=== PATIENT | female | born 1980 | race Caucasian/White ===

== ENCOUNTER 2017-01-29 22:32 | Inpatient (IN) | payer MEDICAID ==
[~2017-01-29] VITALS: Ht 157.5 cm; Wt 61.3 kg
[2017-01-29 22:34] VITALS: BP 131/80; PULSE 88; RESP 18; TEMP 98.6; O2SAT 98
--- NOTE | 2017-01-29 22:45 | PD ---
Physical Exam Date Seen by Provider: Jan 29, 2017 Time Seen by Provider: 22:40 Narrative 36 YOHF C/O ABSCESS ON CHEST 6 DAYS. SOBER 100 DAYS. HAD SURGERY IN OR. NO F/C/ . +N/V SON ALSO SICK. PAIN 01/22. STAGE 4 SACRAL ULCER VS REVIEWED WAITING FOR BED PLACEMENT Data Data Last Documented VS Vital Signs Date Time Temp Pulse Resp B/P Pulse Ox O2 Delivery O2 Flow Rate FiO2 01/29/17 22:34 98.6 88 18 131/80 98 Room Air MDM Supervised Visit with MELBA: Ji Fairchild Jan 29, 2017 22:45
[2017-01-29] MEDS ORDERED: OXYC30TA PO (23:25)
[2017-01-29] MEDS ORDERED: IPRASOL INH (23:25)
[2017-01-29] MEDS ORDERED: IBUP800T23 PO (23:25)
[2017-01-29] MEDS ORDERED: SUBO8MIS SL (23:25)
[2017-01-29] MEDS ORDERED: HYDR50TA94 PO (23:25)
[2017-01-29] MEDS ORDERED: NEPHTAB3 PO (23:25)
[2017-01-29] MEDS ORDERED: METO25TA3 PO (23:25)
[2017-01-29] MEDS ORDERED: ASPI325T PO (23:25)
[2017-01-29] MEDS ORDERED: MAGN400T2 PO (23:25)
--- NOTE | 2017-01-29 23:29 | PD ---
HPI Chief Complaint: Skin Problem Time Seen by Provider: 23:29 Travel History International Travel<30 days: No Contact w/Intl Traveler<30days: No Traveled to known affect area: No History of Present Illness HPI 36-year-old female came to the emergency room with her mother with history of draining abscess on her postsurgical sternal wound. Patient says that she noticed the swelling and the abscess about 3 days ago. She went to see the doctor at the urgent care and was basically told that they wouldn't be able to take care of it and she should come to the emergency room. But patient waited and it "popped" on its own and copious amount of purulent material drained yesterday. It has continued to drain and patient today decided to come to the ER. No history of fever or chills. 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 This happened at [facility] in [place]. Patient was admitted for 6 weeks. During that time she was in, and was septic, renal failure, multiorgan failure. She was released about 5 weeks ago. She has come here to live with her mother who is taking care of her. She hasn't seen a primary care here. But she has an appointment next week with someone. Vital signs were stable in the emergency room. [facility] Past Medical History Narrative Medical List of her past medical, surgical, social and family history is reviewed from the nursing note. Hx Anticoagulant Therapy: Yes (Aspirin) Asthma: Yes Cardiovascular Problems: Yes (Endocarditis) Diminished Hearing: No Gastrointestinal Disorders: Yes (IBS) GERD: Yes Respiratory: Yes (Asthma) Tetanus Vaccination: < 5 Years Influenza Vaccination: No ?: Not LMP: 03/2013 Past Surgical History Cholecystectomy: Yes Valve Replacement: Yes (TRICUSPID VALVE/OPEN HEART SURGERY 11/2016) Social History Alcohol Use: No Tobacco Use: Yes Substance Use: No (FORMER) Allergies-Medications (Allergen,Severity, Reaction): Coded Allergies: Penicillins (Verified Allergy, Severe, 01/29/17) Sulfa (Sulfonamide Antibiotics) (Verified Allergy, Severe, 01/29/17) amoxicillin (Verified Allergy, Severe, 01/29/17) iodine (Verified Allergy, Severe, 01/29/17) Uncoded Allergies: seafood (Allergy, Severe, 01/29/17) Comments List of her allergies reviewed from the nursing note. Reported Meds & Prescriptions Reported Meds & Active Scripts Active Reported Duoneb (Ipratropium-Albuterol Neb) 0.5-2.5 Mg/3 Ml Neb 1 Nebule INH Q8HR NEB Oxycodone (Oxycodone HCl) 30 Mg Tab 30 Mg PO BID Suboxone Sublingual Film (Buprenorphine-Naloxone Sublingual Film) 8-2 Mg Film 1 Film SL TID Unique ID number required: Nephro-Laura (B-Complex W/ C & Folic Acid) 1 Tab 1 Tab PO DAILY Ibuprofen 800 Mg Tab 800 Mg PO BID Aspirin 325 Mg Tab 325 Mg PO DAILY Magnesium Oxide 400 Mg Tab 400 Mg PO DAILY Hydroxyzine HCl 50 Mg Tab 50 Mg PO QID PRN Metoprolol Tartrate 25 Mg Tab 25 Mg PO BID Narrative Medication List of her home medications reviewed from the nursing note. Review of Systems Except as stated in HPI: all other systems reviewed are Neg Physical Exam Narrative GENERAL: The, alert, moderate distress. SKIN: Focused skin assessment warm/dry. Stage IV decubitus ulcer on the sacrum. The postsurgical sternal wound superiorly has a 2 cm x 3 cm abscess that is open and draining on the inferior aspect. Purulent material is draining out. It is tender to touch. HEAD: Atraumatic. Normocephalic. EYES: Pupils equal and round. No scleral icterus. No injection or drainage. ENT: No nasal bleeding or discharge. Mucous membranes pink and moist. NECK: Trachea midline. No JVD. CARDIOVASCULAR: Regular rate and rhythm. No murmur appreciated. RESPIRATORY: No accessory muscle use. Clear to auscultation. Breath sounds equal bilaterally. GASTROINTESTINAL: Abdomen soft, non-tender, nondistended. Hepatic and splenic margins not palpable. MUSCULOSKELETAL: No obvious deformities. No clubbing. No cyanosis. No edema. NEUROLOGICAL: Awake and alert. No obvious cranial nerve deficits. Motor grossly within normal limits. Normal speech. PSYCHIATRIC: Appropriate mood and affect; insight and judgment normal. Data Data Last Documented VS Orders Orders Basic Metabolic Panel (Bmp) (01/29/17 23:34) Complete Blood Count With Diff (01/29/17 23:34) Blood Culture (01/29/17 23:34) Wound Culture And Gram Stain (01/29/17 23:34) C-Reactive Protein (Crp) (01/29/17 23:34) Westergren Sedimentation Rate (01/29/17 23:34) Vancomycin Inj (Vancomycin Inj) (01/29/17 23:45) Sodium Chlor 0.9% 1000 Ml Inj (Ns 1000 M (01/30/17 01:00) Admit Order (Ed Use Only) (01/30/17 01:27) Labs Laboratory Tests Test 01/30/17 00:10 White Blood Count 10.6 TH/MM3 Red Blood Count 3.66 MIL/MM3 Hemoglobin 9.8 GM/DL Hematocrit 30.0 % Mean Corpuscular Volume 82.1 FL Mean Corpuscular Hemoglobin 26.9 PG Mean Corpuscular Hemoglobin Concent 32.7 % Red Cell Distribution Width 16.5 % Platelet Count 455 TH/MM3 Mean Platelet Volume 5.6 FL Neutrophils (%) (Auto) 68.1 % Lymphocytes (%) (Auto) 20.7 % Monocytes (%) (Auto) 5.7 % Eosinophils (%) (Auto) 4.6 % Basophils (%) (Auto) 0.9 % Neutrophils # (Auto) 7.2 TH/MM3 Lymphocytes # (Auto) 2.2 TH/MM3 Monocytes # (Auto) 0.6 TH/MM3 Eosinophils # (Auto) 0.5 TH/MM3 Basophils # (Auto) 0.1 TH/MM3 CBC Comment DIFF FINAL Differential Comment Erythrocyte Sedimentation Rate 104 mm/hr Blood Urea Nitrogen 45 MG/DL Creatinine 2.76 MG/DL Random Glucose 113 MG/DL Calcium Level 11.5 MG/DL Sodium Level 135 MEQ/L Potassium Level 4.6 MEQ/L Chloride Level 100 MEQ/L Carbon Dioxide Level 26.4 MEQ/L Anion Gap 9 MEQ/L Estimat Glomerular Filtration Rate 20 ML/MIN Iron Level 35 MCG/DL Total Iron Binding Capacity 335 MCG/DL Percent Iron Saturation 10.5 % Transferrin 239 MG/DL Ferritin 568 NG/ML C-Reactive Protein 2.25 MG/DL Vitamin B12 Level 582 PG/ML Folate GREATER THAN 20.0 NG/ML MDM Medical Decision Making Medical Screen Exam Complete: Yes Emergency Medical Condition: Yes Medical Record Reviewed: Yes Differential Diagnosis Abscess, postsurgical infection, osteomyelitis, sepsis Narrative Course 2 AM blood test results came back and patient shows significant renal insufficiency. However there is no old labs to compare her previous renal function with. Her last blood test result is from [facility] in [place] and patient doesn't remember her renal function. She was given IV vancomycin. I expressed to her my concern about this infection going into the sternum especially since there is hardware with the sternal wires from recent surgery. Especially with a history of MRSA infection. She has had a long protracted course of illness that was extremely complicated and she was in a significantly critical condition at that time. It would be orosco to admit her and have her receive few more doses of IV antibiotics until the wound culture comes back. Also the admitting team will need to contact [facility] to get her last set of blood test results to compare the renal function. Patient and her mother understood this and agreed with the admission. 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
[2017-01-29] MEDS ORDERED: VANCOMYCIN INJ 1,000 MG in SODIUM CHLOR 0.9% 250 ML INJ 250 ML IV ONE (23:45)
[2017-01-30 00:37] LABS: AUTOMATED NEUTROPHIL # 7.2 TH/MM3 (1.8-7.7); BASOPHIL # 0.1 TH/MM3 (0-0.2); BASOPHIL % 0.9 % (0.0-2.0); EOSINOPHIL # 0.5 TH/MM3 (0-0.4); EOSINOPHIL % 4.6 % (0.0-4.0); HEMO FLAGS DIFF FINAL; LYMPH % 20.7 % (9.0-44.0); LYMPHOCYTE # 2.2 TH/MM3 (1.0-4.8); MEAN CELL VOLUME 82.1 FL (80.0-100.0); MEAN CORPUSCULAR HEMOGLOBIN 26.9 PG (27.0-34.0); MEAN CORPUSCULAR HGB CONC 32.7 % (32.0-36.0); MONO % 5.7 % (0.0-8.0); NEUT % 68.1 % (16.0-70.0); PLATELET COUNT 455 TH/MM3 (150-450); RED BLOOD COUNT 3.66 MIL/MM3 (4.00-5.30); RED CELL DISTRIBUTION WIDTH 16.5 % (11.6-17.2); WHITE BLOOD COUNT 10.6 TH/MM3 (4.0-11.0)
[2017-01-30 00:46] LABS: BICARBONATE 26.4 MEQ/L (21.0-32.0); POTASSIUM 4.6 MEQ/L (3.5-5.1)
[2017-01-30] MEDS ORDERED: SODIUM CHLOR 0.9% 1000 ML INJ 1,000 ML IV ONE (01:00)
[2017-01-30] MEDS ORDERED: LACTULOSE SYRUP 20 GM/30 ML CUP PO PRN (01:30)
[2017-01-30] MEDS ORDERED: ACETAMINOPHEN 325 MG TAB PO PRN (01:30)
[2017-01-30] MEDS ORDERED: SENNOSIDES 8.6 MG TAB PO PRN (01:30)
[2017-01-30] MEDS ORDERED: NALOXONE HCL 0.4 MG/ML AMP IV PRN (01:30)
[2017-01-30] MEDS ORDERED: BISACODYL 10 MG SUPP RECTAL PRN (01:30)
[2017-01-30] MEDS ORDERED: MAGNESIUM HYDROXIDE SUSP 30 ML CUP PO PRN (01:30)
[2017-01-30] MEDS ORDERED: Vancomycin Consult Pharmacy 1 EA OTHER SCH (01:30)
[2017-01-30] MEDS ORDERED: ONDANSETRON HCL 4 MG/2 ML VIAL IVP PRN (01:30)
[2017-01-30] MEDS ORDERED: SODIUM CHLORIDE 0.9% FLUSH 10 ML FLUSH IV FLUSH PRN (01:30)
[2017-01-30] MEDS ORDERED: RESP: ALBUTEROL 2.5 MG/IPRATROPIUM 0.5 MG NEB (PRN) NEB (01:45)
[2017-01-30] MEDS: SODIUM CHLOR 0.9% 1000 ML INJ 1,000 ML IV SCH ×3 (01:56→21:42)
[2017-01-30 02:33] VITALS: BP 126/72; TEMP 98.5
[2017-01-30 04:49] VITALS: BP 100/57; PULSE 89; RESP 17; TEMP 97.9; O2SAT 98
[2017-01-30 08:05] VITALS: BP 96/89; PULSE 86; RESP 18; TEMP 98.2; O2SAT 96
--- NOTE | 2017-01-30 10:50 | MH ---
cc: ACOSTA OLIVER MD DATE OF ADMISSION 01/30/2017 CHIEF COMPLAINT Sternal wound infection after tricuspid valve replacement. HISTORY OF PRESENT ILLNESS This is a 36-year female with a history of IV drug abuse, heroin, in the past who has an infected endocarditis with a tricuspid valve problem for which she had a surgery done in [place]. She has a history of IBS, GERD, asthma. She had a tricuspid valve replacement in November 18, 2016. She is saying that she has a pussy discharge from the postsurgical sternal wound. She said that she noted the swelling and the discharged three days ago. She went to see the doctor at the Urgent Care and was basically told that they would not be able to take care of it and she needs to go to the emergency room. The patient had a copious purulent material drained yesterday and it discontinued to drain today. She no history of fever or chills. So this surgery happened at [facility] in [place]. She remained admitted for six weeks and on septic. She had renal failure and multi-organ failure. She was released from the hospital five weeks ago. She came to [place] to live with her mother who was taking care of her. She does not have any primary care doctor. Other than that, nothing significant. PAST MEDICAL AND SURGICAL HISTORY As dictated above. SOCIAL HISTORY Denies drinking. Smokes on a daily basis. Abuse drugs, IV but denies now. Lives at home with mother. Unemployed. FAMILY HISTORY Nothing significant. ALLERGIES PENICILLIN, SULFA, AMOXICILLIN AND IODINE. MEDICATIONS Include: 1. DuoNeb nebulization q.8 h. 2. Suboxone sublingual three times a day 3. Nephrovite 4. B-complex daily 5. Ibuprofen 800 mg twice a day 6. Aspirin 325 mg p.o. daily 7. Magnesium oxide 400 mg daily 8. Hydroxyzine 50 mg daily 9. Metoprolol 25 mg twice a day REVIEW OF SYSTEMS Positive for a pussy discharge from the sternal wound, feeling weak and tired. All other review of systems are negative. PHYSICAL EXAM This is a 36-year female sitting on the bed not in acute distress. VITAL SIGNS: Temperature 98.2, heart rate 86, respirations 18, blood pressure 96/89, O2 saturation 96% room air. HEENT: Normocephalic, atraumatic. EOMI. PERRL. Oral mucosa moist. NECK: Supple. No visible thyromegaly or neck mass. Trachea central. CARDIOVASCULAR: Regular rate and rhythm. Respirations are clear to auscultation bilaterally. CHEST: Shows a sternal wound infection with discharge. ABDOMEN: Soft and nontender. Bowel sounds audible. EXTREMITIES: No cyanosis or clubbing. Full range of motion of all extremities. No pitting edema. NEUROLOGIC: Awake, alert, and oriented x4. No focal deficits. SKIN: Shows wound at the sternal area with a pussy discharge. PSYCH: The patient is cooperative. Mood and affect are normal. LABORATORY DATA Include CBC showed a WBC count of 10.6 normal. Hemoglobin 9.8 low, hematocrit 30.0 low, platelet count 455 high. BMP totally unremarkable except for a sodium of 135 low, BUN 45 high, creatinine 2.76 high, GFR 20 low, glucose 113 high, calcium 11.5 high, C-reactive protein 2.25. Blood cultures x2 done negative so far. Wound culture done, report is still pending. ASSESSMENT/PLAN This is a 36-year female who came to the ER diagnosed with: 1. 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 Infectious disease and wound care consulted. The patient received vancomycin. Further recommendation per infectious disease and wound care. 2. History of IV drug abuse. 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 Advised to discontinue IV drug abuse. The patient verbalized understanding. 3. Renal failure. We will monitor BUN and creatinine. 4. Anemia. We will check iron study, B12, folic acid level. 5. DVT prophylaxis. Lovenox 30 mg subcutaneous daily. 6. GI prophylaxis 7. Protonix 40 mg p.o. daily We are going to manage the patient on a daily basis and make recommendations on a daily basis. Acosta Oliver MD EA/MARK /10:08 AM /10:26 AM
[2017-01-30] MEDS: METOPROLOL TARTRATE 25 MG TAB PO SCH ×2 (11:28→21:41)
[2017-01-30] MEDS: SODIUM CHLORIDE 0.9% FLUSH 10 ML FLUSH IV FLUSH SCH ×2 (11:28→21:00)
[2017-01-30] MEDS: DOCUSATE SODIUM 50 MG/SENNA 8.6 MG TAB PO SCH ×2 (11:28→21:00)
[2017-01-30] MEDS: FOLIC ACID 1 MG TAB PO SCH (11:28)
[2017-01-30] MEDS ORDERED: LEVOFLOXACIN 250 MG PREMIX INJ 50 ML IV SCH (12:00)
[2017-01-30 12:06] VITALS: BP 100/60; PULSE 50; RESP 20; TEMP 96.8; O2SAT 96
[2017-01-30 13:51] LABS: FERRITIN 568 NG/ML (8-252); TRANSFERRIN 239 MG/DL (213-418); TRANSFERRIN IRON PROFILE 239 MG/DL (200-360)
[2017-01-30] MEDS: oxyCODONE HCL 10 MG CONTROLLED RELEASE TAB PO SCH (14:12)
[2017-01-30] MEDS: ENOXAPARIN SODIUM 30 MG/0.3 ML SYRINGE SQ SCH ×2 (14:14→14:19)
[2017-01-30] MEDS: VITAMIN B COMPLEX/VIT C TAB PO SCH (14:14)
--- NOTE | 2017-01-30 14:43 | PD.CONS ---
[facility] Service Nephrology Consult Requested By Dr. Neil Reason for Consult Acute Renal Failure Primary Care Physician Taye Griffiths M.D. History of Present Illness This is a 36 y/o female patient who came to hospital for evaluation of chest wound. She was admitted to a hospital in [place], [place], where she was admitted for sepsis and TV endocarditis due to IV heroin use. She had complicated hospitalization with multi organ failure. She had a trach and was on the vent for several weeks; she reports a 6 week hospital admission. In addition she had renal failure likely due to ATN, did require multiple dialysis sessions, at one time it was being performed daily. She is not aware of her creatinine at discharge. On arrival here her creatinine was 2.76, with no baseline labs for comparison. We were consulted for management, and she is a full code. Of note she has been taking Motrin 800 mg twice daily since her discharge, and reports her urine has been dark recently. She is also anemic with hemoglobin 9.8. ( An Dotson) Review of Systems Constitutional: COMPLAINS OF: Fatigue, Fever, Change in appetite (An Dotson) Past Family Social History Allergies: Coded Allergies: Penicillins (Verified Allergy, Severe, 01/29/17) Sulfa (Sulfonamide Antibiotics) (Verified Allergy, Severe, 01/29/17) amoxicillin (Verified Allergy, Severe, 01/29/17) iodine (Verified Allergy, Severe, 01/29/17) Uncoded Allergies: seafood (Allergy, Severe, 01/29/17) Past Medical History IBS GERD asthma Hx IVDA, with TV endocarditis; complicated hospitalization, multiorgan failure; was on ventilator for extended time -was on HD for unknown time (she reports daily HD) Past Surgical History Tricuspid valve replacement tracheostomy with reversal PermCath with removal prior vulvectomy tubal GB removal Reported Medications Duoneb (Ipratropium-Albuterol Neb) 0.5-2.5 Mg/3 Ml Neb 1 Nebule INH Q8HR NEB Oxycodone (Oxycodone HCl) 30 Mg Tab 30 Mg PO BID Suboxone Sublingual Film (Buprenorphine-Naloxone Sublingual Film) 8-2 Mg Film 1 Film SL TID Unique ID number required: Nephro-Laura (B-Complex W/ C & Folic Acid) 1 Tab 1 Tab PO DAILY Ibuprofen 800 Mg Tab 800 Mg PO BID Aspirin 325 Mg Tab 325 Mg PO DAILY Magnesium Oxide 400 Mg Tab 400 Mg PO DAILY Hydroxyzine HCl 50 Mg Tab 50 Mg PO QID PRN Metoprolol Tartrate 25 Mg Tab 25 Mg PO BID Active Ordered Medications Current Medications Medications (Trade) Dose Ordered Sig/Tom Route Start Time Stop Time Status Last Admin (NS 1000 ml Inj) 1,000 ml @ 100 mls/hr Q10H IV 01/30/17 01:27 01/30/17 01:56 (NS Flush) 2 ml UNSCH PRN IV FLUSH 01/30/17 01:30 (NS Flush) 2 ml BID IV FLUSH 01/30/17 09:00 01/30/17 11:28 (Tylenol) 650 mg Q4H PRN PO 01/30/17 01:30 (Zofran Inj) 4 mg Q6H PRN IVP 01/30/17 01:30 (Narcan Inj) 0.4 mg UNSCH PRN IV 01/30/17 01:30 (Viridiana-Colace) 1 tab BID PO 01/30/17 09:00 01/30/17 11:28 (Milk Of Magnesia Liq) 30 ml Q12H PRN PO 01/30/17 01:30 (Senokot) 17.2 mg Q12H PRN PO 01/30/17 01:30 (Dulcolax Supp) 10 mg DAILY PRN RECTAL 01/30/17 01:30 Lactulose 30 ml 30 ml DAILY PRN PO 01/30/17 01:30 (Vancomycin Consult Pharmacy) 0 ml @ 0 mls/hr UNSCH OTHER 01/30/17 01:30 (Atarax) 50 mg QID PRN PO 01/30/17 01:45 (Lopressor) 25 mg BID PO 01/30/17 09:00 01/30/17 11:28 (Allbee C) 1 tab DAILY PO 01/30/17 09:00 01/30/17 14:14 (OxyCONTIN CR) 30 mg BID PO 01/30/17 09:00 01/30/17 14:12 (Folate) 1 mg DAILY PO 01/30/17 09:00 01/30/17 11:28 (Pneumovax-23 Inj) 25 mcg ONCE ONCE IM 01/31/17 09:00 01/31/17 09:[address] DUARTE FOR PHARMA... ONCE ONCE .XX 01/31/17 06:00 01/31/17 06:01 (Levaquin 250 Mg Premix Inj) 50 ml @ 50 mls/hr Q24H IV 01/30/17 12:00 01/30/17 14:11 (Lovenox Inj) 30 mg Q24H SQ 01/30/17 12:00 Family History No hx of renal impairment Social History smokes daily denies ETOH former IV heroin use, sober 100 days approximately lives with mother she is unemployed full code (An Dotson) Physical Exam Vital Signs Vital Signs Date Time Temp Pulse Resp B/P Pulse Ox O2 Delivery O2 Flow Rate FiO2 01/30/17 12:06 96.8 50 20 100/60 96 01/30/17 08:05 98.2 86 18 96/89 96 01/30/17 04:49 97.9 89 17 100/57 98 01/30/17 02:33 98.5 81 16 126/72 98 01/29/17 23:18 16 01/29/17 22:34 98.6 88 18 131/80 98 Room Air Physical Exam Young female patient awake, alert, oriented x 3 S1/S2, RRR, no murmur auscultated Lungs clear in all rivas Abd: soft, non tender Ext: no edema upper chest she has abscess appearing area where her incision was healing, purulent drainage; some bloody drainage Laboratory Laboratory Tests Test 01/30/17 00:10 White Blood Count 10.6 Red Blood Count 3.66 Hemoglobin 9.8 Hematocrit 30.0 Mean Corpuscular Volume 82.1 Mean Corpuscular Hemoglobin 26.9 Mean Corpuscular Hemoglobin 32.7 Concent Red Cell Distribution Width 16.5 Platelet Count 455 Mean Platelet Volume 5.6 Neutrophils (%) (Auto) 68.1 Lymphocytes (%) (Auto) 20.7 Monocytes (%) (Auto) 5.7 Eosinophils (%) (Auto) 4.6 Basophils (%) (Auto) 0.9 Neutrophils # (Auto) 7.2 Lymphocytes # (Auto) 2.2 Monocytes # (Auto) 0.6 Eosinophils # (Auto) 0.5 Basophils # (Auto) 0.1 CBC Comment DIFF FINAL Differential Comment Erythrocyte Sedimentation Rate 104 Sodium Level 135 Potassium Level 4.6 Chloride Level 100 Carbon Dioxide Level 26.4 Anion Gap 9 Blood Urea Nitrogen 45 Creatinine 2.76 Estimat Glomerular Filtration 20 Rate Random Glucose 113 Calcium Level 11.5 Iron Level 35 Total Iron Binding Capacity 335 Percent Iron Saturation 10.5 Transferrin 239 Ferritin 568 C-Reactive Protein 2.25 Vitamin B12 Level 582 Folate GREATER THAN 20.0 Date/Time Procedure Status Source Growth 01/30/17 00:10 Gram Stain - Final Resulted Wound Chest 01/30/17 00:10 Wound Culture Resulted Wound Chest Pending 01/30/17 00:10 Aerobic Blood Culture Received Blood Peripheral Pending 01/30/17 00:10 Anaerobic Blood Culture Received Blood Peripheral Pending (An Dotson) Result Diagram: 01/30/17901/30/179 Assessment and Plan Problem List: (1) Renal insufficiency Plan: There are no prior labs for comparison, her creatinine here is 2.76 urine output unknown it is possible she is still in renal recovery or in [place] due to infection, she is on 0.9% NS, continue Obtain UA and renal US avoid nephrotoxic medications, monitor drug levels when appropriate (2) Postoperative infection Plan: ID and wound care to evaluate cultures have been drawn she is on contact isolation (3) Anemia Plan: hospitalist to manage B12 and folate are not deficient (An Dotson) Assessment and Plan patient was seen and examined. Agree with above assessment and plan. Avoid Ibuprofen. Baseline renal function is not known, was in [place], [place] with endocarditis, cardiac surgery, and renal failure requiring dialysis. (Zoran Mireles MD) Problem Qualifiers (1) Postoperative infection: Qualified Code: T81.4XXA - Postoperative infection, initial encounter An Dotson Jan 30, 2017 14:43 Zoran Mireles MD Jan 30, 2017 21:21
--- NOTE | 2017-01-30 16:25 | PD.WCN.NOT ---
Wound Consult Description: Stage 4 pressure injury to sacral area and assisted DAMASO Bates with dressing change to medial chest open incision line. Communicated with: DAMASO Bates F pod CDU and Doctor Acosta Neil Recommendation: Please cleanse wound to sacral area with normal saline only and pat dry. Apply Santyl ointment cheri thickness to wound bed and cover with slightly moistened Maxorb II (Calcium Alginate) dressing . Secured dressing with dry cover dressing and change daily. Additional Information: Patient seen on F pod CDU for evaluation of coccyx wound management. Patient also has midline chest wound with positive wound culture for rare gram positive cocci in pairs and clusters. Infectious disease is consulted for chest wound.Patient had previous surgery for endocarditis in [place]. Patient states, "I was in ICU and they didn't turn me and I got a wound that was all the way down to the bone back there."RN Jana changed dressing to chest. Wound was noted open to air with 100% red non granulation tissue to wound bed. Wound to chest measures ~5cm x ~1cm x ~0.1 cm. Wound has minimal sero-sanguinous drainage. RN cleansed wound with normal saline before applying Xeroform dressing in single layer just over wound bed and covered with bordered gauze. Patient is standing with out assistance for Coccyx wound assessment. Removed gauze and tape dressing in place to reveal sacral wound. Wound bed presents with ~80% pale red granulation tissue, ~10% yellow thin slough and ~10% white tissue. Periwound is noted with maceration between 5 and 6 o'clock an is other orosco unremarkable. Wound margins are epiboled and unattached from 10 to 4 o' clock. Wound has scant active sero-sanguinous drainage without odor. Cleansed wound with normal saline and applied Maxorb II packed in to wound bed and covered with dry cover dressing.Patient ambulatory and able to reposition self without difficulty in bed.Also sees wound care physician in [place]. Henry," They are using santyl on my wound." Jannette Simons [facility] Jan 30, 2017 16:25
[2017-01-30 16:34] VITALS: BP 105/69; RESP 18; TEMP 96.8; O2SAT 96
[2017-01-30] MEDS: hydrOXYzine HCL 50 MG TAB PO PRN (18:56)
--- NOTE | 2017-01-30 19:37 | MB ---
cc: SAMANTA TRUJILLO MD DATE OF CONSULTATION 01/29/[address] Acosta Neil. REASON FOR CONSULTATION Sternal wound abscess. Recent endocarditis. History of MRSA. HISTORY OF PRESENT ILLNESS This is a 36-year-old white female who presented to the emergency department with a draining wound at the sternum. She is status post tricuspid valve replacement in [place], [place] in November 18, 2016. The patient notes that while she was in the hospital she had kidney failure and had to be dialyzed. She also notes that she had a feeding tube and had been fed via the feeding tube which was in her nose for up to six weeks to two months. The patient does not recall the bacterial infection that caused her sepsis. The patient moved to [place] two weeks ago. Initial presentation revealed white count of 10.6, normal temperature. The patient is noted also to have acute kidney disease at this time. PAST MEDICAL HISTORY 1. Tricuspid valve endocarditis 2. History of IV drug abuse prior to cardiac valve replacement 3. Irritable bowel syndrome, 4. Gastroesophageal reflux disease, 5. Asthma. ALLERGIES PENICILLIN SULFA AMOXICILLIN IODINE MEDICATIONS 1. Vancomycin dose was given earlier. 2. Levaquin 3. Viridiana-Colace. 4. Lopressor. 5. Oxycodone. 6. Folic acid 7. Atarax. 8. DuoNeb. 9. Vitamin D. 10. Vitamin C SOCIAL HISTORY Positive tobacco, history of IV drug abuse. No alcohol. FAMILY HISTORY Noncontributory REVIEW OF SYSTEMS Negative on 10-point review except for mild chest discomfort. PHYSICAL EXAMINATION GENERAL: This is a slender female in no acute distress. She is awake, alert and oriented. VITAL SIGNS: Temperature of 96.8, BP 105/69, respirations 89, rate 86. HEENT: Head atraumatic. Extraocular movements grossly intact, pupils reactive to light without icterus. Oropharynx moist mucosa without lesions. NECK: Supple. No adenopathy. LUNGS: Clear to auscultation. CHEST: Sternal wound with a dressing in place. There is erythema and swelling around the sternal incision. HEART: Regular S1-S2 without audible murmurs. ABDOMEN: Bowel sounds present, soft, no tenderness appreciated. RECTAL: Not performed. EXTREMITIES: No clubbing, cyanosis or edema. SKIN: No rash. NEUROLOGIC: Nonfocal PSYCHIATRIC: The patient calm and cooperative. LABORATORY DATA WBC 10.6, platelets 455, 68% neutrophils, 20% lymphocytes, hemoglobin 9.8. Creatinine 2.76, estimated GFR 20, sodium 135. Wound culture pending. Blood culture pending. A wound Gram stain shows rare gram-positive cocci in pairs and clusters. IMPRESSION 1. Sternal wound infection 2. Status post tricuspid valve replacement via open sternal thoracotomy RECOMMENDATIONS 1. Continue vancomycin but monitor levels to dose based on levels because of the patient's renal function. 2. Discontinue Levaquin 3. Monitor cultures. Thank you for this consultation. The patient's progress will be monitored and antibiotics will be adjusted on followup. Samanta Trujillo MD FD/ /5:41 PM /7:17 PM DENNY
[2017-01-30 20:24] VITALS: BP 119/62; PULSE 75; RESP 16; TEMP 98; O2SAT 100
[2017-01-31] VITALS (8 sets, daily range): BP systolic 98–130; BP diastolic 50–75; PULSE 65–73; RESP 16–18; TEMP 97.9–98.5; O2SAT 96–100
[2017-01-31] MEDS: oxyCODONE HCL 10 MG CONTROLLED RELEASE TAB PO SCH ×3 (01:14→21:46)
[2017-01-31] MEDS ORDERED: PHARMACY ORDERED LAB ONE (06:00)
[2017-01-31] MEDS: SODIUM CHLOR 0.9% 1000 ML INJ 1,000 ML IV SCH ×2 (07:27→18:27)
[2017-01-31] MEDS: DOCUSATE SODIUM 50 MG/SENNA 8.6 MG TAB PO SCH ×2 (09:00→21:00)
[2017-01-31] MEDS: SODIUM CHLORIDE 0.9% FLUSH 10 ML FLUSH IV FLUSH SCH ×2 (09:00→21:00)
[2017-01-31] MEDS ORDERED: PNEUMOCOCCAL POLYVALENT INJ 25 MCG/0.5 ML SYR IM ONE (09:00)
[2017-01-31] MEDS: FOLIC ACID 1 MG TAB PO SCH (09:30)
[2017-01-31] MEDS: METOPROLOL TARTRATE 25 MG TAB PO SCH ×2 (09:32→21:47)
[2017-01-31] MEDS: VITAMIN B COMPLEX/VIT C TAB PO SCH (09:32)
--- NOTE | 2017-01-31 10:04 | HHI.PR ---
Subjective History of Present Illness Patient same still have sternal wound infection no acute issue Infectious disease and wound care input noted Started on Vancomycin IV. Discontinued Levaquin Review of Systems Constitutional Constitutional: Fatigue, Weakness Integumentary Skin: Wounds Skin Remarks mid sternal wound with redness and discharge. Vitals/Results Intake & Output 01/30/17 01/30/17 01/31/17 15:00 23:00 07:00 Intake Total 600 ml Output Total 1800 ml Balance -1200 ml Intake Oral 600 ml Output Urine Total 1800 ml # Voids 3 Vital Signs Vital Signs Date Time Temp Pulse Resp B/P Pulse Ox O2 Delivery O2 Flow Rate FiO2 01/31/17 08:00 97.9 69 16 98/60 100 01/31/17 04:00 98.3 70 17 120/60 100 01/31/17 00:11 98.4 72 16 110/60 98 01/30/17 20:24 98.0 75 16 119/62 100 01/30/17 16:34 96.8 18 105/69 96 01/30/17 12:06 96.8 50 20 100/60 96 CBC/BMP: 01/30/17 0010 01/30/17 0010 Physical Exam General General Appearance: No Acute Distress, Comfortable Eyes Eye Exam: Sclera White, Extraocular Movement Intact Throat Throat Exam: Oral Mucosa [place] & Moist, Oral Pharynx Normal Neck Neck Exam: Neck Supple, Trachea Midline Pulmonary Resp Exam: Clear Bilaterally, Breath Sounds Equal Cardiology CV Exam: Regular, Normal Sinus Rhythm Chest/Breast Chest/Breast Remarks mid sternal wound with erythema and discharge. Gastrointestinal/Abdomen GI Exam: Soft, Non-Tender, Bowel Sounds Present Musculoskeletal MS Exam: Joints Intact Integumentary Skin Exam: Warm, Dry Skin Remarks mid sternal wound with erythema and discharge. Neurologic Neuro Exam: Alert, Awake, Oriented, Moving All Extremities, No Focal Deficits Psychiatric Psych Exam: Appropriate Responses VTE Prophylaxis VTE Prophylaxis Meds: Lovenox PUD Prophylasis PUD Prophylaxis: Protonix Assessment/Plan Assessment/Plan ASSESSMENT/PLAN This is a 36-year female who came to the ER diagnosed with: 1. 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 Infectious disease and wound care input noted Started on Vancomycin IV. Discontinued Levaquin The patient received vancomycin. Further recommendation per infectious disease and wound care. 2. History of IV drug abuse. 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 Advised to discontinue IV drug abuse. The patient verbalized understanding. 3. Renal failure. We will monitor BUN and creatinine. 4. Anemia. checked iron study, B12, folic acid level...noted 5. DVT prophylaxis. Lovenox 30 mg subcutaneous daily. 6. GI prophylaxis Protonix 40 mg p.o. daily Check CBC with diff CMP in AM. We are going to manage the patient on a daily basis and make recommendations on a daily basis. Discussed Condition with: Patient Acosta Neil MD Jan 31, 2017 10:04
[2017-01-31] MEDS ORDERED: VANCOMYCIN INJ 1,000 MG in SODIUM CHLOR 0.9% 250 ML INJ 250 ML IV ONE ×2 (12:15→18:00)
[2017-01-31] MEDS: COLLAGENASE OINT 30 GM TUBE TOPICAL SCH (12:22)
--- NOTE | 2017-01-31 14:19 | HHI.NPPN ---
Subjective Additional Remarks No acute complaints, voiding today Objective Data Data 01/30/17 01/31/17 19:00 07:00 Intake Total 600 ml Output Total 1800 ml Balance -1200 ml Intake Oral 600 ml Output Urine Total 1800 ml # Voids 3 Vital Signs Date Time Temp Pulse Resp B/P Pulse Ox O2 Delivery O2 Flow Rate FiO2 01/31/17 12:00 98.4 71 18 113/50 96 01/31/17 11:30 124/73 130/75 01/31/17 08:00 97.9 69 16 98/60 100 01/31/17 04:00 98.3 70 17 120/60 100 01/31/17 00:11 98.4 72 16 110/60 98 01/30/17 20:24 98.0 75 16 119/62 100 01/30/17 16:34 96.8 18 105/69 96 -: 01/30/17 0010 01/30/17 0010 Physical Exam General Appearance: No Acute Distress, Comfortable Eyes Eye Exam: Sclera White, Extraocular Movement Intact Throat Throat Exam: Oral Mucosa [place] & Moist, Oral Pharynx Normal Neck Neck Exam: Neck Supple, Trachea Midline Pulmonary Resp Exam: Clear Bilaterally, Breath Sounds Equal Cardiology CV Exam: Regular, Normal Sinus Rhythm Gastrointestinal/Abdomen GI Exam: Soft, Non-Tender, Bowel Sounds Present Musculoskeletal MS Exam: Joints Intact Integumentary Skin Exam: Warm, Dry Neurologic Neuro Exam: Alert, Awake, Oriented, Moving All Extremities, No Focal Deficits Psychiatric Psych Exam: Appropriate Responses PUD Prophylasis PUD Prophylaxis: Protonix Assessment/Plan Problem List: (1) Renal insufficiency Plan: There are no prior labs for comparison, her creatinine here is 2.76 No new labs today. Patient voiding - urine output not quantified. Monitor strict I/O's it is possible she is still in renal recovery or in SAMSON due to infection, she is on 0.9% NS at 100cc/hour. Follow labs and UOP. Volume status stable. Will order UA and renal US avoid nephrotoxic medications, monitor drug levels when appropriate Vancomycin given - caution given SAMSON. May consider for Daptomycin given renal failure - follow per ID (2) Postoperative infection Plan: ID and wound care to evaluate cultures have been drawn she is on contact isolation (3) Anemia Plan: Hgb stable B12 and folate are not deficient Problem Qualifiers (1) Postoperative infection: Qualified Code: T81.4XXA - Postoperative infection, initial encounter (2) Anemia: Moustapha Rodgers MD Jan 31, 2017 14:19
[2017-01-31] MEDS ORDERED: Vancomycin Consult Pharmacy 1 EA OTHER SCH (14:45)
--- NOTE | 2017-01-31 15:33 | RADRPT ---
EXAM DATE/TIME: 01/31/2017 14:44 [facility] COMPARISON: No previous studies available for comparison. INDICATIONS : Increased lab values. MEDICAL HISTORY : Gastroesophageal reflux disease. Endocarditis. Asthma. IBS. SURGICAL HISTORY : Cholecystectomy. Tubal ligation. Tricuspid valve replacement. J stent. ENCOUNTER: Initial ACUITY: 1 day PAIN SCORE: 10/10 LOCATION: Bilateral flank MEASUREMENTS: RIGHT KIDNEY: 12.0 x 5.3 x 6.2 cm LEFT KIDNEY: 11.3 x 5.3 x 4.7 cm FINDINGS: There is no hydronephrosis. No definite solid mass is identified. No definite stone is identified f or technique. The bladder is grossly intact for technique and not being completely distended during t he exam. CONCLUSION: Unremarkable renal ultrasound. Theo Ambrose MD on January 31, 2017 at 15:31 Board Certified Radiologist. This report was verified electronically.
[2017-02-01] VITALS: BP 107/68; PULSE 63; RESP 17; TEMP 97.8; O2SAT 100
[2017-02-01] MEDS: SODIUM CHLOR 0.9% 1000 ML INJ 1,000 ML IV SCH ×2 (03:52→14:35)
[2017-02-01 04:00] VITALS: BP 116/60; PULSE 68; RESP 17; TEMP 98.2; O2SAT 100
[2017-02-01] MEDS: SODIUM CHLORIDE 0.9% FLUSH 10 ML FLUSH IV FLUSH SCH ×2 (08:30→21:12)
[2017-02-01] MEDS: COLLAGENASE OINT 30 GM TUBE TOPICAL SCH ×2 (08:30→22:12)
[2017-02-01] MEDS: DOCUSATE SODIUM 50 MG/SENNA 8.6 MG TAB PO SCH ×2 (08:30→21:00)
[2017-02-01] MEDS: oxyCODONE HCL 10 MG CONTROLLED RELEASE TAB PO SCH ×2 (08:30→21:09)
[2017-02-01] MEDS: VITAMIN B COMPLEX/VIT C TAB PO SCH (08:30)
[2017-02-01] MEDS: METOPROLOL TARTRATE 25 MG TAB PO SCH ×2 (08:30→21:08)
[2017-02-01] MEDS: FOLIC ACID 1 MG TAB PO SCH (08:30)
[2017-02-01 12:00] VITALS: BP 114/57; PULSE 63; RESP 16; TEMP 98.1; O2SAT 99
[2017-02-01] MEDS: ENOXAPARIN SODIUM 30 MG/0.3 ML SYRINGE SQ SCH (12:35)
[2017-02-01 14:23] LABS: BASOPHIL # 0.1 TH/MM3 (0-0.2); BASOPHIL % 1.1 % (0.0-2.0); EOSINOPHIL # 0.4 TH/MM3 (0-0.4); EOSINOPHIL % 4.4 % (0.0-4.0); HEMO FLAGS DIFF FINAL; LYMPH % 24.7 % (9.0-44.0); LYMPHOCYTE # 2.1 TH/MM3 (1.0-4.8); MEAN CELL VOLUME 82.2 FL (80.0-100.0); MEAN CORPUSCULAR HEMOGLOBIN 28.4 PG (27.0-34.0); MEAN CORPUSCULAR HGB CONC 34.5 % (32.0-36.0); MONO % 10.2 % (0.0-8.0); NEUT % 59.6 % (16.0-70.0); PLATELET COUNT 342 TH/MM3 (150-450); RED BLOOD COUNT 3.16 MIL/MM3 (4.00-5.30); RED CELL DISTRIBUTION WIDTH 16.5 % (11.6-17.2); WHITE BLOOD COUNT 8.3 TH/MM3 (4.0-11.0)
[2017-02-01 14:38] LABS: BICARBONATE 24.5 MEQ/L (21.0-32.0); POTASSIUM 4.8 MEQ/L (3.5-5.1)
[2017-02-01 16:00] VITALS: BP 112/56; PULSE 66; RESP 16; TEMP 98.2; O2SAT 99
--- NOTE | 2017-02-01 17:20 | HHI.NPPN ---
Subjective Additional Remarks No acute complaints, voiding today. Wants to go home soon Objective Data Data Vital Signs Date Time Temp Pulse Resp B/P (MAP) Pulse Ox O2 Delivery O2 Flow Rate FiO2 02/01/17 09:30 18 02/01/17 07:15 98 Room Air 02/01/17 04:00 98.2 68 17 116/60 (78) 100 02/01/17 00:00 97.8 63 17 107/68 (81) 100 01/31/17 20:15 Room Air 01/31/17 20:00 98.4 73 18 99/58 (72) 97 01/31/17 17:40 98.5 65 18 111/56 (74) 98 -: 02/01/17 1357 02/01/17 1357 Physical Exam General Appearance: No Acute Distress, Comfortable Eyes Eye Exam: Sclera White, Extraocular Movement Intact Throat Throat Exam: Oral Mucosa [place] & Moist, Oral Pharynx Normal Neck Neck Exam: Neck Supple, Trachea Midline Pulmonary Resp Exam: Clear Bilaterally, Breath Sounds Equal Cardiology CV Exam: Regular, Normal Sinus Rhythm Gastrointestinal/Abdomen GI Exam: Soft, Non-Tender, Bowel Sounds Present Musculoskeletal MS Exam: Joints Intact Integumentary Skin Exam: Warm, Dry Neurologic Neuro Exam: Alert, Awake, Oriented, Moving All Extremities, No Focal Deficits Psychiatric Psych Exam: Appropriate Responses PUD Prophylasis PUD Prophylaxis: Protonix Assessment/Plan Problem List: (1) Renal insufficiency ICD Codes: N28.9 - Disorder of kidney and ureter, unspecified Status: Acute Plan: There are no prior labs for comparison. Creatinine 2.7 -> 2.1 Patient voiding - urine output not quantified. Monitor strict I/O's it is possible she is still in renal recovery or in SAMSON due to infection, Continue NS at 100cc/hour. Follow labs and UOP. Volume status stable. Normal renal ultrasound, with 11, 12cm kidneys. Will reorder U/A (not done) avoid nephrotoxic medications, monitor drug levels when appropriate Vancomycin given - caution given SAMSON. May consider for Daptomycin given renal failure - follow per ID (2) Postoperative infection ICD Codes: T81.4XXA - Infection following a procedure, initial encounter Status: Acute Plan: ID and wound care to evaluate cultures have been drawn she is on contact isolation (3) Anemia ICD Codes: D64.9 - Anemia, unspecified Status: Acute Plan: Hgb stable B12 and folate are not deficient Problem Qualifiers (1) Postoperative infection: (2) Anemia: Moustapha Rodgers MD Feb 01, 2017 17:20
[2017-02-01 20:00] VITALS: BP 119/57; PULSE 69; RESP 20; TEMP 98.4; O2SAT 99
[2017-02-01] MEDS ORDERED: VANCOMYCIN 1,000 MG/NS 250 ML IV ONE ×2 (21:00)
[2017-02-02] VITALS: BP 114/56; PULSE 75; RESP 18; TEMP 98.5; O2SAT 99
[2017-02-02 04:00] VITALS: BP 132/69; PULSE 82; RESP 20; TEMP 98.8; O2SAT 99
[2017-02-02 08:00] VITALS: BP 119/59; PULSE 78; RESP 16; TEMP 98.7; O2SAT 99
[2017-02-02] MEDS: SODIUM CHLORIDE 0.9% FLUSH 10 ML FLUSH IV FLUSH SCH ×2 (08:38→21:00)
[2017-02-02] MEDS: SODIUM CHLOR 0.9% 1000 ML INJ 1,000 ML IV SCH ×2 (08:38→18:12)
[2017-02-02] MEDS: VITAMIN B COMPLEX/VIT C TAB PO SCH (08:39)
[2017-02-02] MEDS: FOLIC ACID 1 MG TAB PO SCH (08:39)
[2017-02-02] MEDS: oxyCODONE HCL 10 MG CONTROLLED RELEASE TAB PO SCH ×2 (08:40→21:34)
[2017-02-02] MEDS: DOCUSATE SODIUM 50 MG/SENNA 8.6 MG TAB PO SCH ×2 (08:40→21:00)
[2017-02-02] MEDS: COLLAGENASE OINT 30 GM TUBE TOPICAL SCH (08:40)
--- NOTE | 2017-02-02 08:49 | HHI.PR ---
Subjective History of Present Illness Patient seen on 02/01/17 same still have sternal wound infection no acute issue Infectious disease and wound care input noted on Vancomycin IV. Discontinued Levaquin Review of Systems Constitutional Constitutional: Fatigue, Weakness Integumentary Skin: Wounds Skin Remarks mid sternal wound with redness and discharge. Vitals/Results Vital Signs Vital Signs Date Time Temp Pulse Resp B/P (MAP) Pulse Ox O2 Delivery O2 Flow Rate FiO2 02/02/17 04:00 98.8 82 20 132/69 (90) 99 02/02/17 00:00 98.5 75 18 114/56 (75) 99 02/01/17 20:00 98.4 69 20 119/57 (77) 99 02/01/17 19:45 Room Air 02/01/17 16:00 98.2 66 16 112/56 (74) 99 02/01/17 12:00 98.1 63 16 114/57 (76) 99 02/01/17 09:30 18 CBC/BMP: 02/01/17 1357 02/01/17 1357 Lab Results Laboratory Tests Test 02/01/17 13:57 White Blood Count 8.3 TH/MM3 Red Blood Count 3.16 MIL/MM3 Hemoglobin 9.0 GM/DL Hematocrit 26.0 % Mean Corpuscular Volume 82.2 FL Mean Corpuscular Hemoglobin 28.4 PG Mean Corpuscular Hemoglobin Concent 34.5 % Red Cell Distribution Width 16.5 % Platelet Count 342 TH/MM3 Mean Platelet Volume 5.7 FL Neutrophils (%) (Auto) 59.6 % Lymphocytes (%) (Auto) 24.7 % Monocytes (%) (Auto) 10.2 % Eosinophils (%) (Auto) 4.4 % Basophils (%) (Auto) 1.1 % Neutrophils # (Auto) 5.0 TH/MM3 Lymphocytes # (Auto) 2.1 TH/MM3 Monocytes # (Auto) 0.8 TH/MM3 Eosinophils # (Auto) 0.4 TH/MM3 Basophils # (Auto) 0.1 TH/MM3 CBC Comment DIFF FINAL Differential Comment Blood Urea Nitrogen 39 MG/DL Creatinine 2.10 MG/DL Random Glucose 88 MG/DL Calcium Level 11.2 MG/DL Sodium Level 136 MEQ/L Potassium Level 4.8 MEQ/L Chloride Level 105 MEQ/L Carbon Dioxide Level 24.5 MEQ/L Anion Gap 7 MEQ/L Estimat Glomerular Filtration Rate 27 ML/MIN Physical Exam General General Appearance: No Acute Distress, Comfortable Eyes Eye Exam: Sclera White, Extraocular Movement Intact Throat Throat Exam: Oral Mucosa [place] & Moist, Oral Pharynx Normal Neck Neck Exam: Neck Supple, Trachea Midline Pulmonary Resp Exam: Clear Bilaterally, Breath Sounds Equal Cardiology CV Exam: Regular, Normal Sinus Rhythm Chest/Breast Chest/Breast Remarks mid sternal wound with erythema and discharge. Gastrointestinal/Abdomen GI Exam: Soft, Non-Tender, Bowel Sounds Present Musculoskeletal MS Exam: Joints Intact Integumentary Skin Exam: Warm, Dry Skin Remarks mid sternal wound with erythema and discharge. Neurologic Neuro Exam: Alert, Awake, Oriented, Moving All Extremities, No Focal Deficits Psychiatric Psych Exam: Appropriate Responses VTE Prophylaxis VTE Prophylaxis Meds: Lovenox PUD Prophylasis PUD Prophylaxis: Protonix Assessment/Plan Assessment/Plan ASSESSMENT/PLAN This is a 36-year female who came to the ER diagnosed with: 1. 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 Infectious disease and wound care input noted on Vancomycin IV. Discontinued Levaquin The patient received vancomycin. Further recommendation per infectious disease and wound care. 2. History of IV drug abuse. 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 Advised to discontinue IV drug abuse. The patient verbalized understanding. 3. Renal failure. We will monitor BUN and creatinine. 4. Anemia. checked iron study, B12, folic acid level...noted 5. DVT prophylaxis. Lovenox 30 mg subcutaneous daily. 6. GI prophylaxis Protonix 40 mg p.o. daily Check CBC with diff CMP in AM. We are going to manage the patient on a daily basis and make recommendations on a daily basis. Discussed Condition with: Patient Acosta Neil MD Feb 02, 2017 08:49
[2017-02-02 09:57] LABS: ANION GAP 7 MEQ/L (5-15); AST (GOT) 34 U/L (15-37); BICARBONATE 25.2 MEQ/L (21.0-32.0); BLOOD UREA NITROGEN 38 MG/DL (7-18); CHLORIDE 105 MEQ/L (98-107); GLOMERULAR FILTRATION RATE 29 ML/MIN (>89); POTASSIUM 4.6 MEQ/L (3.5-5.1); SODIUM (NA) 137 MEQ/L (136-145)
[2017-02-02 10:02] LABS: ALKALINE PHOSPHATASE 139 U/L (45-117); ALT (GPT) 47 U/L (10-53); TOTAL BILIRUBIN ADULT 0.4 MG/DL (0.2-1.0)
[2017-02-02 12:00] VITALS: BP 126/80; PULSE 78; RESP 16; TEMP 98.9; O2SAT 99
[2017-02-02] MEDS: METOPROLOL TARTRATE 25 MG TAB PO SCH ×2 (12:37→21:34)
[2017-02-02] MEDS: ENOXAPARIN SODIUM 30 MG/0.3 ML SYRINGE SQ SCH (12:37)
[2017-02-02 14:59] LABS: BACTERIA, URINE RARE /hpf; BLOOD, URINE MOD (NEG); COMMENT (UR) CULT NOT INDICATED; CULTURE IF INDICATED CULT NOT INDICATED; GLUCOSE,URINE NEG (NEG); KETONE, URINE NEG (NEG); NITRITE,URINE NEG (NEG); SQUAMOUS EPITHELIAL CELL URINE <1 /hpf (0-5); URINE COLOR YELLOW (YELLW/STRAW)
--- NOTE | 2017-02-02 17:06 | HHI.NPPN ---
Subjective General Problems: Anemia Renal Failure: Acute Interval History Lying in bed, awake/alert. No distress. Renal function improved slightly. (An Dotson) Review of Systems Skin Skin Remarks wound anterior chest (An Dotson) Objective Data Data Vital Signs Date Time Temp Pulse Resp B/P (MAP) Pulse Ox O2 Delivery O2 Flow Rate FiO2 02/02/17 12:00 98.9 78 16 126/80 (95) 99 02/02/17 08:46 Room Air 02/02/17 08:00 98.7 78 16 119/59 (79) 99 02/02/17 04:00 98.8 82 20 132/69 (90) 99 02/02/17 00:00 98.5 75 18 114/56 (75) 99 02/01/17 20:00 98.4 69 20 119/57 (77) 99 02/01/17 19:45 Room Air (An Dotson) -: 02/01/17 1357 02/02/17 0859 Imaging Last Impressions Renal Ultrasound 01/31/17 0000 Signed Impressions: Service Date/Time: Tuesday, January 31, 2017 14:44 - CONCLUSION: Unremarkable renal ultrasound. Theo Ambrose MD (An Dotson) Physical Exam General Appearance: Well Developed, No Acute Distress, Comfortable, Sleeping (An Dotson) Eyes Eye Exam: Sclera White, Extraocular Movement Intact (An Dotson) Throat Throat Exam: Oral Mucosa [place] & Moist, Oral Pharynx Normal (An Dotson) Neck Neck Exam: Neck Supple, Trachea Midline (An Dotson) Pulmonary Resp Exam: Clear Bilaterally, Breath Sounds Equal (An Dotson) Cardiology CV Exam: Regular, Normal Sinus Rhythm (An Dotson) Gastrointestinal/Abdomen GI Exam: Soft, Non-Tender, Bowel Sounds Present (An Dotson) Musculoskeletal MS Exam: Joints Intact (An Dotson) Integumentary Skin Exam: Warm, Dry Skin Remarks sternal wound, + drainage, slough (An Dotson) Extremeties Extremities Exam: No Edema, Pedal Pulses Palpable (An Dotson) Neurologic Neuro Exam: Alert, Awake, Oriented, Moving All Extremities, No Focal Deficits (An Dotson) Psychiatric Psych Exam: Appropriate Responses (An Dotson) VTE Prophylaxis Meds: Lovenox (An Dotson) PUD Prophylasis PUD Prophylaxis: Protonix (An Dotson) Assessment/Plan Discussed Condition With: Patient Assessment Summary: SAMSON/Acute Renal Failure Problem List: (1) Renal insufficiency ICD Codes: N28.9 - Disorder of kidney and ureter, unspecified Status: Acute Plan: There are no prior labs for comparison. SAMSON due to infection she is non oliguric, renal function improving she is on 0.9% NS @ 100cc/hr, continue but taper off over upcoming days avoid nephrotoxins, given renal failure consider changing vancomycin to Daptomycin -monitor drug levels when appropriate UA ordered, await results repeat renal panel in AM (2) Postoperative infection ICD Codes: T81.4XXA - Infection following a procedure, initial encounter Status: Acute Plan: ID and wound have evaluated Levaquin stopped, on vancomycin culture + MRSA she is on contact isolation (3) Anemia ICD Codes: D64.9 - Anemia, unspecified Status: Acute Plan: Hgb low but stable B12 and folate are not deficient (4) Hypercalcemia ICD Codes: E83.52 - Hypercalcemia Plan: check vitamin D and PTH levels she is not on supplements continue IVF (An Dotson) Plan patient was seen and examined. Renal function is stable. Avoid nephrotoxic agents. (Zoran Mireles MD) Problem Qualifiers (1) Postoperative infection: (2) Anemia: An Dotson Feb 02, 2017 17:06 Zoran Mireles MD Feb 03, 2017 11:29
--- NOTE | 2017-02-02 17:16 | HHI.IDPN ---
Note Infectious Disease Note Patient feels sore a the chest. Notes pain 8/10 scale. No chills, No diarrhea. No fever. Sternal wound culture has MRSA. PAST MEDICAL HISTORY 1. Tricuspid valve endocarditis 2. History of IV drug abuse prior to cardiac valve replacement. November 2016. 3. Irritable bowel syndrome, 4. Gastroesophageal reflux disease, 5. Asthma. ALLERGIES PENICILLIN SULFA AMOXICILLIN IODINE ANTIBIOTICS Vancomycin. OBJECTIVE: Vital Signs Date Time Temp Pulse Resp B/P (MAP) Pulse Ox O2 Delivery O2 Flow Rate FiO2 02/02/17 12:00 98.9 78 16 126/80 (95) 99 02/02/17 08:46 Room Air 02/02/17 08:00 98.7 78 16 119/59 (79) 99 02/02/17 04:00 98.8 82 20 132/69 (90) 99 02/02/17 00:00 98.5 75 18 114/56 (75) 99 02/01/17 20:00 98.4 69 20 119/57 (77) 99 02/01/17 19:45 Room Air Laboratory Tests Test 02/01/17 13:57 White Blood Count 8.3 TH/MM3 Red Blood Count 3.16 MIL/MM3 Hemoglobin 9.0 GM/DL Hematocrit 26.0 % Mean Corpuscular Volume 82.2 FL Mean Corpuscular Hemoglobin 28.4 PG Mean Corpuscular Hemoglobin Concent 34.5 % Red Cell Distribution Width 16.5 % Platelet Count 342 TH/MM3 Mean Platelet Volume 5.7 FL Neutrophils (%) (Auto) 59.6 % Lymphocytes (%) (Auto) 24.7 % Monocytes (%) (Auto) 10.2 % Eosinophils (%) (Auto) 4.4 % Basophils (%) (Auto) 1.1 % Neutrophils # (Auto) 5.0 TH/MM3 Lymphocytes # (Auto) 2.1 TH/MM3 Monocytes # (Auto) 0.8 TH/MM3 Eosinophils # (Auto) 0.4 TH/MM3 Basophils # (Auto) 0.1 TH/MM3 CBC Comment DIFF FINAL Differential Comment Laboratory Tests Test 02/01/17 13:57 02/02/17 08:59 Blood Urea Nitrogen 39 MG/DL 38 MG/DL Creatinine 2.10 MG/DL 1.98 MG/DL Random Glucose 88 MG/DL 110 MG/DL Calcium Level 11.2 MG/DL 11.1 MG/DL Sodium Level 136 MEQ/L 137 MEQ/L Potassium Level 4.8 MEQ/L 4.6 MEQ/L Chloride Level 105 MEQ/L 105 MEQ/L Carbon Dioxide Level 24.5 MEQ/L 25.2 MEQ/L Anion Gap 7 MEQ/L 7 MEQ/L Estimat Glomerular Filtration Rate 27 ML/MIN 29 ML/MIN Total Protein 7.9 GM/DL Albumin 2.9 GM/DL Alkaline Phosphatase 139 U/L Aspartate Amino Transf (AST/SGOT) 34 U/L Alanine Aminotransferase (ALT/SGPT) 47 U/L Total Bilirubin 0.4 MG/DL PHYSICAL EXAMINATION GENERAL: No acute distress. She is awake, alert and oriented. HEENT: No icterus. Oropharynx moist mucosa without lesions. NECK: Supple. No adenopathy. LUNGS: Clear to auscultation. CHEST: Sternal wound with a dressing in place. There is erythema and swelling around the sternal incision. HEART: Regular S1-S2 without audible murmurs. ABDOMEN: Bowel sounds present, soft, no tenderness appreciated. EXTREMITIES: No clubbing, cyanosis or edema. SKIN: No rash. NEUROLOGIC: Nonfocal PSYCHIATRIC: Calm and cooperative. IMPRESSION 1. Sternal wound infection. MRSA. 2. Status post tricuspid valve replacement via open sternal thoracotomy 3. Acute kidney disease - stage 4. RECOMMENDATIONS 1. Stop vancomycin. 2. Begin IV Cubicin. Because of potentially reversible kidney disease. will avoid vancomycin. 3. Cardiothoracic surgery consult - ? sternal debridement. 4. Need to plan on IV antibiotic x 6 weeks. 5. Follow up with ID outpatient on discharge. 6. Anticipate placement of a central line for outpatient treatment. Discussed with patient and her mother in room. Husam Pappas MD Feb 02, 2017 17:16
--- NOTE | 2017-02-02 17:37 | HHI.PR ---
Subjective History of Present Illness Patient same still have sternal wound infection no acute issue Infectious disease and wound care input noted on Daptomycin Review of Systems Constitutional Constitutional: Fatigue, Weakness Integumentary Skin: Wounds Skin Remarks mid sternal wound with redness and discharge. Vitals/Results Vital Signs Vital Signs Date Time Temp Pulse Resp B/P (MAP) Pulse Ox O2 Delivery O2 Flow Rate FiO2 02/02/17 12:00 98.9 78 16 126/80 (95) 99 02/02/17 08:46 Room Air 02/02/17 08:00 98.7 78 16 119/59 (79) 99 02/02/17 04:00 98.8 82 20 132/69 (90) 99 02/02/17 00:00 98.5 75 18 114/56 (75) 99 02/01/17 20:00 98.4 69 20 119/57 (77) 99 02/01/17 19:45 Room Air CBC/BMP: 02/01/17 1357 02/02/17 0859 Lab Results Laboratory Tests Test 02/02/17 08:59 02/02/17 14:02 Blood Urea Nitrogen 38 MG/DL Creatinine 1.98 MG/DL Random Glucose 110 MG/DL Total Protein 7.9 GM/DL Albumin 2.9 GM/DL Calcium Level 11.1 MG/DL Alkaline Phosphatase 139 U/L Aspartate Amino Transf (AST/SGOT) 34 U/L Alanine Aminotransferase (ALT/SGPT) 47 U/L Total Bilirubin 0.4 MG/DL Sodium Level 137 MEQ/L Potassium Level 4.6 MEQ/L Chloride Level 105 MEQ/L Carbon Dioxide Level 25.2 MEQ/L Anion Gap 7 MEQ/L Estimat Glomerular Filtration Rate 29 ML/MIN Urine Color YELLOW Urine Turbidity CLEAR Urine pH 7.0 Urine Specific [place] 1.009 Urine Protein 30 mg/dL Urine Glucose (UA) NEG mg/dL Urine Ketones NEG mg/dL Urine Occult Blood MOD Urine Nitrite NEG Urine Bilirubin NEG Urine Urobilinogen LESS THAN 2.0 MG/DL Urine Leukocyte Esterase TRACE Urine RBC 116 /hpf Urine WBC 5 /hpf Urine Squamous Epithelial Cells <1 /hpf Urine Amorphous Sediment RARE Urine Bacteria RARE /hpf Microscopic Urinalysis Comment CULT NOT INDICATED Physical Exam General General Appearance: Well Developed, No Acute Distress, Comfortable, Sleeping Eyes Eye Exam: Sclera White, Extraocular Movement Intact Throat Throat Exam: Oral Mucosa [place] & Moist, Oral Pharynx Normal Neck Neck Exam: Neck Supple, Trachea Midline Pulmonary Resp Exam: Clear Bilaterally, Breath Sounds Equal Cardiology CV Exam: Regular, Normal Sinus Rhythm Chest/Breast Chest/Breast Remarks mid sternal wound with erythema and discharge. Gastrointestinal/Abdomen GI Exam: Soft, Non-Tender, Bowel Sounds Present Musculoskeletal MS Exam: Joints Intact Integumentary Skin Exam: Warm, Dry Skin Remarks mid sternal wound with erythema and discharge. Extremeties Extremities Exam: No Edema, Pedal Pulses Palpable Neurologic Neuro Exam: Alert, Awake, Oriented, Moving All Extremities, No Focal Deficits Psychiatric Psych Exam: Appropriate Responses VTE Prophylaxis VTE Prophylaxis Meds: Lovenox PUD Prophylasis PUD Prophylaxis: Protonix Assessment/Plan Assessment/Plan ASSESSMENT/PLAN This is a 36-year female who came to the ER diagnosed with: 1. 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 Infectious disease and wound care input noted on Daptomycin. Discontinued vancomycin. Further recommendation per infectious disease and wound care. 2. History of IV drug abuse. 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 Advised to discontinue IV drug abuse. The patient verbalized understanding. 3. Renal failure. We will monitor BUN and creatinine. 4. Anemia. checked iron study, B12, folic acid level...noted 5. DVT prophylaxis. Lovenox 30 mg subcutaneous daily. 6. GI prophylaxis Protonix 40 mg p.o. daily Check CBC with diff CMP in AM. We are going to manage the patient on a daily basis and make recommendations on a daily basis. Discussed Condition with: Patient Acosta Neil MD Feb 02, 2017 17:37
[2017-02-02 20:00] VITALS: BP 97/56; PULSE 68; RESP 18; TEMP 98.5; O2SAT 99
[2017-02-03] VITALS: BP 116/58; PULSE 65; RESP 18; TEMP 98.1; O2SAT 100
[2017-02-03] MEDS: SODIUM CHLOR 0.9% 1000 ML INJ 1,000 ML IV SCH ×2 (03:33→17:18)
[2017-02-03 04:00] VITALS: BP 116/68; PULSE 70; RESP 16; TEMP 98.1; O2SAT 100
[2017-02-03 06:23] LABS: AUTOMATED NEUTROPHIL # 3.5 TH/MM3 (1.8-7.7); BASOPHIL # 0.1 TH/MM3 (0-0.2); BASOPHIL % 1.1 % (0.0-2.0); EOSINOPHIL # 0.3 TH/MM3 (0-0.4); EOSINOPHIL % 5.1 % (0.0-4.0); HEMATOCRIT 24.7 % (35.0-46.0); HEMO FLAGS DIFF FINAL; LYMPH % 30.3 % (9.0-44.0); MEAN CELL VOLUME 81.4 FL (80.0-100.0); MEAN CORPUSCULAR HEMOGLOBIN 26.9 PG (27.0-34.0); MEAN CORPUSCULAR HGB CONC 33.1 % (32.0-36.0); MONO % 10.6 % (0.0-8.0); NEUT % 52.9 % (16.0-70.0); PLATELET COUNT 332 TH/MM3 (150-450); RED BLOOD COUNT 3.03 MIL/MM3 (4.00-5.30); RED CELL DISTRIBUTION WIDTH 16.7 % (11.6-17.2); WHITE BLOOD COUNT 6.6 TH/MM3 (4.0-11.0)
[2017-02-03 07:24] LABS: ANION GAP 9 MEQ/L (5-15); AST (GOT) 41 U/L (15-37); BICARBONATE 22.8 MEQ/L (21.0-32.0); BLOOD UREA NITROGEN 38 MG/DL (7-18); CHLORIDE 105 MEQ/L (98-107); GLOMERULAR FILTRATION RATE 31 ML/MIN (>89); POTASSIUM 4.8 MEQ/L (3.5-5.1); SODIUM (NA) 137 MEQ/L (136-145)
[2017-02-03 07:28] LABS: ALKALINE PHOSPHATASE 121 U/L (45-117); ALT (GPT) 52 U/L (10-53); TOTAL BILIRUBIN ADULT 0.4 MG/DL (0.2-1.0)
[2017-02-03 08:00] VITALS: BP 124/64; PULSE 63; RESP 18; TEMP 98.1; O2SAT 100
[2017-02-03] MEDS: METOPROLOL TARTRATE 25 MG TAB PO SCH ×2 (08:56→20:24)
[2017-02-03] MEDS: FOLIC ACID 1 MG TAB PO SCH (08:56)
[2017-02-03] MEDS: VITAMIN B COMPLEX/VIT C TAB PO SCH (08:56)
[2017-02-03] MEDS: DAPTOmycin INJ 360 MG in SODIUM CHLORIDE 0.9% INJ 100 ML IV SCH (08:56)
[2017-02-03] MEDS: SODIUM CHLORIDE 0.9% FLUSH 10 ML FLUSH IV FLUSH SCH ×2 (08:57→20:24)
[2017-02-03] MEDS: DOCUSATE SODIUM 50 MG/SENNA 8.6 MG TAB PO SCH ×2 (08:57→20:24)
[2017-02-03] MEDS: oxyCODONE HCL 10 MG CONTROLLED RELEASE TAB PO SCH ×2 (08:57→20:24)
[2017-02-03] MEDS: COLLAGENASE OINT 30 GM TUBE TOPICAL SCH (08:59)
[2017-02-03 12:00] VITALS: BP 109/57; PULSE 74; RESP 18; TEMP 97.9; O2SAT 100
[2017-02-03] MEDS: ENOXAPARIN SODIUM 30 MG/0.3 ML SYRINGE SQ SCH (12:52)
--- NOTE | 2017-02-03 14:20 | HHI.IDPN ---
Note Infectious Disease Note Patient feels sore at the chest. Pain 8/10 scale. No chills. No fever. Sternal wound culture has MRSA. PAST MEDICAL HISTORY 1. Tricuspid valve endocarditis 2. History of IV drug abuse prior to cardiac valve replacement. November 2016. 3. Irritable bowel syndrome, 4. Gastroesophageal reflux disease, 5. Asthma. ALLERGIES PENICILLIN SULFA AMOXICILLIN IODINE ANTIBIOTICS Daptomycin. OBJECTIVE: Vital Signs Date Time Temp Pulse Resp B/P (MAP) Pulse Ox O2 Delivery O2 Flow Rate FiO2 02/03/17 12:00 97.9 74 18 109/57 (74) 100 02/03/17 09:05 Room Air 02/03/17 08:00 98.1 63 18 124/64 (84) 100 02/03/17 04:00 98.1 70 16 116/68 (84) 100 02/03/17 04:00 Room Air 02/03/17 00:00 98.1 65 18 116/58 (77) 100 02/02/17 23:37 Room Air 02/02/17 20:00 Room Air 02/02/17 20:00 98.5 68 18 97/56 (70) 99 Laboratory Tests Test 02/03/17 04:47 White Blood Count 6.6 TH/MM3 Red Blood Count 3.03 MIL/MM3 Hemoglobin 8.2 GM/DL Hematocrit 24.7 % Mean Corpuscular Volume 81.4 FL Mean Corpuscular Hemoglobin 26.9 PG Mean Corpuscular Hemoglobin Concent 33.1 % Red Cell Distribution Width 16.7 % Platelet Count 332 TH/MM3 Mean Platelet Volume 5.7 FL Neutrophils (%) (Auto) 52.9 % Lymphocytes (%) (Auto) 30.3 % Monocytes (%) (Auto) 10.6 % Eosinophils (%) (Auto) 5.1 % Basophils (%) (Auto) 1.1 % Neutrophils # (Auto) 3.5 TH/MM3 Lymphocytes # (Auto) 2.0 TH/MM3 Monocytes # (Auto) 0.7 TH/MM3 Eosinophils # (Auto) 0.3 TH/MM3 Basophils # (Auto) 0.1 TH/MM3 CBC Comment DIFF FINAL Differential Comment Laboratory Tests Test 02/02/17 08:59 02/03/17 04:47 Blood Urea Nitrogen 38 MG/DL 38 MG/DL Creatinine 1.98 MG/DL 1.85 MG/DL Random Glucose 110 MG/DL 78 MG/DL Total Protein 7.9 GM/DL 7.6 GM/DL Albumin 2.9 GM/DL 2.8 GM/DL Calcium Level 11.1 MG/DL 10.7 MG/DL Alkaline Phosphatase 139 U/L 121 U/L Aspartate Amino Transf (AST/SGOT) 34 U/L 41 U/L Alanine Aminotransferase (ALT/SGPT) 47 U/L 52 U/L Total Bilirubin 0.4 MG/DL 0.4 MG/DL Sodium Level 137 MEQ/L 137 MEQ/L Potassium Level 4.6 MEQ/L 4.8 MEQ/L Chloride Level 105 MEQ/L 105 MEQ/L Carbon Dioxide Level 25.2 MEQ/L 22.8 MEQ/L Anion Gap 7 MEQ/L 9 MEQ/L Estimat Glomerular Filtration Rate 29 ML/MIN 31 ML/MIN 25-Hydroxy Vitamin D Total 18.7 ng/ML Parathyroid Hormone (Intact) LESS THAN 2.5 PG/ML PHYSICAL EXAMINATION GENERAL: No acute distress. HEENT: No icterus. Oropharynx moist mucosa without lesions. NECK: Supple. No adenopathy. LUNGS: Clear to auscultation. CHEST: Sternal wound with a dressing in place. Swelling around the sternal incision. No erythema. Small ulceration with serous drainage. HEART: Regular S1-S2 without audible murmurs. ABDOMEN: Bowel sounds present, soft, no tenderness appreciated. EXTREMITIES: No clubbing, cyanosis or edema. SKIN: No rash. NEUROLOGIC: Nonfocal PSYCHIATRIC: Calm and cooperative. IMPRESSION 1. Sternal wound infection. MRSA. 2. Status post tricuspid valve replacement via open sternal thoracotomy 3. Acute kidney disease - stage 4. RECOMMENDATIONS 1. Continue IV Cubicin. Because of potentially reversible kidney disease. will avoid vancomycin. 3. Cardiothoracic surgery consult - ? sternal debridement. Not yet seen. may need to do a bone scan since she is allergic to iodine. 4. Need to plan on IV antibiotic x 6 weeks. May have to pace a central line for IV antibiotics. Will await CV eval. before line placement. 5. Follow up with ID outpatient on discharge. Husam Pappas MD Feb 03, 2017 14:20
--- NOTE | 2017-02-03 14:46 | HHI.PR ---
Subjective History of Present Illness Patient same still have sternal wound infection no acute issue Infectious disease and wound care input noted on Cubicin per ID recommendation Cardiovascular consulted. Renal function improving. Review of Systems Constitutional Constitutional: Fatigue, Weakness Integumentary Skin: Wounds Skin Remarks mid sternal wound with redness Vitals/Results Vital Signs Vital Signs Date Time Temp Pulse Resp B/P (MAP) Pulse Ox O2 Delivery O2 Flow Rate FiO2 02/03/17 12:00 97.9 74 18 109/57 (74) 100 02/03/17 09:05 Room Air 02/03/17 08:00 98.1 63 18 124/64 (84) 100 02/03/17 04:00 98.1 70 16 116/68 (84) 100 02/03/17 04:00 Room Air 02/03/17 00:00 98.1 65 18 116/58 (77) 100 02/02/17 23:37 Room Air 02/02/17 20:00 Room Air 02/02/17 20:00 98.5 68 18 97/56 (70) 99 CBC/BMP: 02/03/17 0447 02/03/17 0447 Lab Results Laboratory Tests Test 02/03/17 04:47 White Blood Count 6.6 TH/MM3 Red Blood Count 3.03 MIL/MM3 Hemoglobin 8.2 GM/DL Hematocrit 24.7 % Mean Corpuscular Volume 81.4 FL Mean Corpuscular Hemoglobin 26.9 PG Mean Corpuscular Hemoglobin Concent 33.1 % Red Cell Distribution Width 16.7 % Platelet Count 332 TH/MM3 Mean Platelet Volume 5.7 FL Neutrophils (%) (Auto) 52.9 % Lymphocytes (%) (Auto) 30.3 % Monocytes (%) (Auto) 10.6 % Eosinophils (%) (Auto) 5.1 % Basophils (%) (Auto) 1.1 % Neutrophils # (Auto) 3.5 TH/MM3 Lymphocytes # (Auto) 2.0 TH/MM3 Monocytes # (Auto) 0.7 TH/MM3 Eosinophils # (Auto) 0.3 TH/MM3 Basophils # (Auto) 0.1 TH/MM3 CBC Comment DIFF FINAL Differential Comment Blood Urea Nitrogen 38 MG/DL Creatinine 1.85 MG/DL Random Glucose 78 MG/DL Total Protein 7.6 GM/DL Albumin 2.8 GM/DL Calcium Level 10.7 MG/DL Alkaline Phosphatase 121 U/L Aspartate Amino Transf (AST/SGOT) 41 U/L Alanine Aminotransferase (ALT/SGPT) 52 U/L Total Bilirubin 0.4 MG/DL Sodium Level 137 MEQ/L Potassium Level 4.8 MEQ/L Chloride Level 105 MEQ/L Carbon Dioxide Level 22.8 MEQ/L Anion Gap 9 MEQ/L Estimat Glomerular Filtration Rate 31 ML/MIN 25-Hydroxy Vitamin D Total 18.7 ng/ML Parathyroid Hormone (Intact) LESS THAN 2.5 PG/ML Random Vancomycin Level 17.8 COMMENT Physical Exam General General Appearance: Well Developed, No Acute Distress, Comfortable, Sleeping Eyes Eye Exam: Sclera White, Extraocular Movement Intact Throat Throat Exam: Oral Mucosa [place] & Moist, Oral Pharynx Normal Neck Neck Exam: Neck Supple, Trachea Midline Pulmonary Resp Exam: Clear Bilaterally, Breath Sounds Equal Cardiology CV Exam: Regular, Normal Sinus Rhythm Chest/Breast Chest/Breast Remarks mid sternal wound with erythema. Gastrointestinal/Abdomen GI Exam: Soft, Non-Tender, Bowel Sounds Present Musculoskeletal MS Exam: Joints Intact Integumentary Skin Exam: Warm, Dry Skin Remarks mid sternal wound with erythema. Extremeties Extremities Exam: No Edema, Pedal Pulses Palpable Neurologic Neuro Exam: Alert, Awake, Oriented, Moving All Extremities, No Focal Deficits Psychiatric Psych Exam: Appropriate Responses VTE Prophylaxis VTE Prophylaxis Meds: Lovenox PUD Prophylasis PUD Prophylaxis: Protonix Assessment/Plan Assessment/Plan ASSESSMENT/PLAN This is a 36-year female who came to the ER diagnosed with: 1. 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 Infectious disease and wound care input noted on Cubicin . Cardiovascular surgeon consulted. Further recommendation per consultants. 2. History of IV drug abuse. 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 Advised to discontinue IV drug abuse. The patient verbalized understanding. 3. Renal failure. We will monitor BUN and creatinine...better 4. Anemia. checked iron study, B12, folic acid level...noted 5. DVT prophylaxis. Lovenox 30 mg subcutaneous daily. 6. GI prophylaxis Protonix 40 mg p.o. daily Check CBC with diff CMP in AM. We are going to manage the patient on a daily basis and make recommendations on a daily basis. Discussed Condition with: Patient Acosta Neil MD Feb 03, 2017 14:46
[2017-02-03 16:00] VITALS: BP 111/56; PULSE 71; RESP 18; TEMP 97.9; O2SAT 100
--- NOTE | 2017-02-03 16:50 | HHI.NPPN ---
Subjective General Problems: Anemia Renal Failure: Acute Interval History Renal function improved. Good urine output. Antibiotics have been changed. (An Dotson) Review of Systems Skin Skin Remarks wound anterior chest (An Dotson) Objective Data Data Vital Signs Date Time Temp Pulse Resp B/P (MAP) Pulse Ox O2 Delivery O2 Flow Rate FiO2 02/03/17 12:00 97.9 74 18 109/57 (74) 100 02/03/17 09:05 Room Air 02/03/17 08:00 98.1 63 18 124/64 (84) 100 02/03/17 04:00 98.1 70 16 116/68 (84) 100 02/03/17 04:00 Room Air 02/03/17 00:00 98.1 65 18 116/58 (77) 100 02/02/17 23:37 Room Air 02/02/17 20:00 Room Air 02/02/17 20:00 98.5 68 18 97/56 (70) 99 (An Dotson) -: 02/03/17 0447 02/03/17 0447 Imaging Last Impressions Renal Ultrasound 01/31/17 0000 Signed Impressions: Service Date/Time: Tuesday, January 31, 2017 14:44 - CONCLUSION: Unremarkable renal ultrasound. Theo Ambrose MD (An Dotson) Physical Exam General Appearance: Well Developed, Well Nourished, No Acute Distress, Comfortable (An Dotson) Eyes Eye Exam: Sclera White, Extraocular Movement Intact (An Dotson) Throat Throat Exam: Oral Mucosa [place] & Moist, Oral Pharynx Normal (An Dotson) Neck Neck Exam: Neck Supple, Trachea Midline (An Dotson) Pulmonary Resp Exam: Clear Bilaterally, Breath Sounds Equal, No Distress (An Dotson) Cardiology CV Exam: Regular, Normal Sinus Rhythm, Good Perfusion (An Dotson) Gastrointestinal/Abdomen GI Exam: Soft, Non-Tender, Bowel Sounds Present (An Dotson) Musculoskeletal MS Exam: Joints Intact (An Dotson) Integumentary Skin Exam: Warm, Dry Skin Remarks sternal wound, + drainage, slough (An Dotsno) Extremeties Extremities Exam: No Edema, Pedal Pulses Palpable (An Dotson) Neurologic Neuro Exam: Alert, Awake, Oriented, Moving All Extremities, No Focal Deficits (An Dotson) Psychiatric Psych Exam: Appropriate Responses (An Dotson) VTE Prophylaxis Meds: Lovenox (An Dotson) PUD Prophylasis PUD Prophylaxis: Protonix (An Dotson) Assessment/Plan Discussed Condition With: Patient Assessment Summary: SAMSON/Acute Renal Failure Problem List: (1) Renal insufficiency ICD Codes: N28.9 - Disorder of kidney and ureter, unspecified Status: Acute Plan: There are no prior labs for comparison. SAMSON due to infection, renal function improving she is non oliguric, ram removed taper off IVF over next few days avoid nephrotoxins, antibiotics have been changed to Daptomycin -monitor drug levels when appropriate stable from renal perspective (2) Postoperative infection ICD Codes: T81.4XXA - Infection following a procedure, initial encounter Status: Acute Plan: ID and wound have evaluated vancomycin changed to Daptomycin culture + MRSA she is on contact isolation can have midline placed for senior living Abx management (3) Anemia ICD Codes: D64.9 - Anemia, unspecified Status: Acute Plan: Hgb low but stable B12 and folate are not deficient; (4) Hypercalcemia ICD Codes: E83.52 - Hypercalcemia Plan: PTH appropriately low avoid vitamin D administration Plan we will sign off at this time (An Dotson) Problem List: (1) Renal insufficiency ICD Codes: N28.9 - Disorder of kidney and ureter, unspecified Status: Acute Plan: There are no prior labs for comparison. 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 Renal function and hypercalcemia both have improved. Hypercalcemia could be due to chronic immobilization syndrome. (Zoran Mireles MD) Problem Qualifiers (1) Postoperative infection: (2) Anemia: An Dotson Feb 03, 2017 16:50 Zoran Mireles MD Feb 03, 2017 22:09
--- NOTE | 2017-02-03 17:10 | PD.CAR.PN ---
CVT Progress Note Subjective/Hospital Course: pt seen and evaluated , full consult pending Objective: Vital Signs Date Time Temp Pulse Resp B/P (MAP) Pulse Ox O2 Delivery O2 Flow Rate FiO2 02/03/17 12:00 97.9 74 18 109/57 (74) 100 02/03/17 09:05 Room Air 02/03/17 08:00 98.1 63 18 124/64 (84) 100 02/03/17 04:00 98.1 70 16 116/68 (84) 100 02/03/17 04:00 Room Air 02/03/17 00:00 98.1 65 18 116/58 (77) 100 02/02/17 23:37 Room Air 02/02/17 20:00 Room Air 02/02/17 20:00 98.5 68 18 97/56 (70) 99 Result Diagram: 02/03/17 0447 02/03/17 0447 Sahara Andino Feb 03, 2017 17:10
[2017-02-03] MEDS: hydrOXYzine HCL 50 MG TAB PO PRN (17:18)
[2017-02-03 20:00] VITALS: BP 102/61; PULSE 66; RESP 16; TEMP 97.9; O2SAT 100
[2017-02-04] VITALS (7 sets, daily range): BP systolic 99–128; BP diastolic 53–66; PULSE 71–79; RESP 16–20; TEMP 97.6–98.7; O2SAT 94–100
[2017-02-04] MEDS: SODIUM CHLOR 0.9% 1000 ML INJ 1,000 ML IV SCH ×2 (01:27→21:27)
[2017-02-04 06:18] LABS: BACTERIA, URINE RARE /hpf; BLOOD, URINE MOD (NEG); COMMENT (UR) CULTURE INDICATED; CULTURE IF INDICATED CULTURE INDICATED; GLUCOSE,URINE NEG (NEG); KETONE, URINE NEG (NEG); MUCUS URINE FEW /lpf (OCC); NITRITE,URINE NEG (NEG); PH, URINE 6.5 (5.0-8.5); RENAL EPITHELIAL CELLS <1 /hpf; URINE COLOR YELLOW (YELLW/STRAW)
[2017-02-04 06:19] LABS: BASOPHIL # 0.1 TH/MM3 (0-0.2); BASOPHIL % 2.2 % (0.0-2.0); EOSINOPHIL # 0.3 TH/MM3 (0-0.4); EOSINOPHIL % 5.3 % (0.0-4.0); HEMATOCRIT 25.8 % (35.0-46.0); HEMO FLAGS DIFF FINAL; LYMPH % 33.7 % (9.0-44.0); MEAN CELL VOLUME 82.7 FL (80.0-100.0); MEAN CORPUSCULAR HEMOGLOBIN 26.9 PG (27.0-34.0); MEAN CORPUSCULAR HGB CONC 32.5 % (32.0-36.0); MONO % 9.5 % (0.0-8.0); NEUT % 49.3 % (16.0-70.0); PLATELET COUNT 277 TH/MM3 (150-450); RED BLOOD COUNT 3.12 MIL/MM3 (4.00-5.30); RED CELL DISTRIBUTION WIDTH 16.3 % (11.6-17.2)
[2017-02-04 06:48] LABS: ANION GAP 10 MEQ/L (5-15); AST (GOT) 40 U/L (15-37); BICARBONATE 22.3 MEQ/L (21.0-32.0); BLOOD UREA NITROGEN 46 MG/DL (7-18); CHLORIDE 104 MEQ/L (98-107); GLOMERULAR FILTRATION RATE 27 ML/MIN (>89); POTASSIUM 4.9 MEQ/L (3.5-5.1); SODIUM (NA) 136 MEQ/L (136-145)
[2017-02-04 06:52] LABS: ALKALINE PHOSPHATASE 122 U/L (45-117); ALT (GPT) 54 U/L (10-53); TOTAL BILIRUBIN ADULT 0.3 MG/DL (0.2-1.0)
--- NOTE | 2017-02-04 08:31 | HHI.PR ---
Subjective History of Present Illness Patient same still have sternal wound infection no acute issue Infectious disease and wound care input noted on Cubicin per ID recommendation Cardiovascular seen the patient. Review of Systems Constitutional Constitutional: Fatigue, Weakness Integumentary Skin: Wounds Skin Remarks mid sternal wound with redness Vitals/Results Vital Signs Vital Signs Date Time Temp Pulse Resp B/P (MAP) Pulse Ox O2 Delivery O2 Flow Rate FiO2 02/04/17 04:24 Room Air 02/04/17 04:00 98.4 77 16 100/53 (69) 100 02/04/17 00:00 Room Air 02/04/17 00:00 98.2 71 16 106/62 (77) 99 02/03/17 20:00 Room Air 02/03/17 20:00 97.9 66 16 102/61 (75) 100 02/03/17 16:00 97.9 71 18 111/56 (74) 100 02/03/17 12:00 97.9 74 18 109/57 (74) 100 02/03/17 09:05 Room Air CBC/BMP: 02/04/17 0528 02/04/17 0528 Lab Results Laboratory Tests Test 02/04/17 05:28 02/04/17 05:45 White Blood Count 6.0 TH/MM3 Red Blood Count 3.12 MIL/MM3 Hemoglobin 8.4 GM/DL Hematocrit 25.8 % Mean Corpuscular Volume 82.7 FL Mean Corpuscular Hemoglobin 26.9 PG Mean Corpuscular Hemoglobin Concent 32.5 % Red Cell Distribution Width 16.3 % Platelet Count 277 TH/MM3 Mean Platelet Volume 5.9 FL Neutrophils (%) (Auto) 49.3 % Lymphocytes (%) (Auto) 33.7 % Monocytes (%) (Auto) 9.5 % Eosinophils (%) (Auto) 5.3 % Basophils (%) (Auto) 2.2 % Neutrophils # (Auto) 3.0 TH/MM3 Lymphocytes # (Auto) 2.0 TH/MM3 Monocytes # (Auto) 0.6 TH/MM3 Eosinophils # (Auto) 0.3 TH/MM3 Basophils # (Auto) 0.1 TH/MM3 CBC Comment DIFF FINAL Differential Comment Blood Urea Nitrogen 46 MG/DL Creatinine 2.06 MG/DL Random Glucose 86 MG/DL Total Protein 7.6 GM/DL Albumin 2.8 GM/DL Calcium Level 11.0 MG/DL Alkaline Phosphatase 122 U/L Aspartate Amino Transf (AST/SGOT) 40 U/L Alanine Aminotransferase (ALT/SGPT) 54 U/L Total Bilirubin 0.3 MG/DL Sodium Level 136 MEQ/L Potassium Level 4.9 MEQ/L Chloride Level 104 MEQ/L Carbon Dioxide Level 22.3 MEQ/L Anion Gap 10 MEQ/L Estimat Glomerular Filtration Rate 27 ML/MIN Urine Color YELLOW Urine Turbidity CLEAR Urine pH 6.5 Urine Specific [place] 1.010 Urine Protein 30 mg/dL Urine Glucose (UA) NEG mg/dL Urine Ketones NEG mg/dL Urine Occult Blood MOD Urine Nitrite NEG Urine Bilirubin NEG Urine Urobilinogen LESS THAN 2.0 MG/DL Urine Leukocyte Esterase TRACE Urine RBC 107 /hpf Urine WBC 10 /hpf Urine Renal Epithelial Cells <1 /hpf Urine Bacteria RARE /hpf Urine Mucus FEW /lpf Microscopic Urinalysis Comment CULTURE INDICATED Microbiology Microbiology 02/04/17 Urine Culture, Received Pending Physical Exam General General Appearance: Well Developed, Well Nourished, No Acute Distress, Comfortable Eyes Eye Exam: Sclera White, Extraocular Movement Intact Throat Throat Exam: Oral Mucosa [place] & Moist, Oral Pharynx Normal Neck Neck Exam: Neck Supple, Trachea Midline Pulmonary Resp Exam: Clear Bilaterally, Breath Sounds Equal, No Distress Cardiology CV Exam: Regular, Normal Sinus Rhythm, Good Perfusion Chest/Breast Chest/Breast Remarks mid sternal wound with erythema. Gastrointestinal/Abdomen GI Exam: Soft, Non-Tender, Bowel Sounds Present Musculoskeletal MS Exam: Joints Intact Integumentary Skin Exam: Warm, Dry Skin Remarks mid sternal wound with erythema. Extremeties Extremities Exam: No Edema, Pedal Pulses Palpable Neurologic Neuro Exam: Alert, Awake, Oriented, Moving All Extremities, No Focal Deficits Psychiatric Psych Exam: Appropriate Responses VTE Prophylaxis VTE Prophylaxis Meds: Lovenox PUD Prophylasis PUD Prophylaxis: Protonix Assessment/Plan Assessment/Plan ASSESSMENT/PLAN This is a 36-year female who came to the ER diagnosed with: 1. 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 wound culture grows MRSA Infectious disease and wound care input noted on Cubicin . Cardiovascular surgeon seen the patient. need 6 week IV Antibiotic per ID Recommendation. Further recommendation per consultants. 2. History of IV drug abuse. 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 Advised to discontinue IV drug abuse. The patient verbalized understanding. 3. Renal failure. We will monitor BUN and creatinine...better 4. Anemia. checked iron study, B12, folic acid level...noted 5. DVT prophylaxis. Lovenox 30 mg subcutaneous daily. 6. GI prophylaxis Protonix 40 mg p.o. daily Check CBC with diff CMP in AM. We are going to manage the patient on a daily basis and make recommendations on a daily basis. Discussed Condition with: Patient Acosta Neil MD Feb 04, 2017 08:31
[2017-02-04] MEDS: oxyCODONE HCL 10 MG CONTROLLED RELEASE TAB PO SCH ×2 (10:31→22:01)
[2017-02-04] MEDS: METOPROLOL TARTRATE 25 MG TAB PO SCH ×2 (10:32→21:00)
[2017-02-04] MEDS: DOCUSATE SODIUM 50 MG/SENNA 8.6 MG TAB PO SCH ×2 (10:32→21:00)
[2017-02-04] MEDS: FOLIC ACID 1 MG TAB PO SCH (10:32)
[2017-02-04] MEDS: VITAMIN B COMPLEX/VIT C TAB PO SCH (10:32)
[2017-02-04] MEDS: COLLAGENASE OINT 30 GM TUBE TOPICAL SCH (10:33)
[2017-02-04] MEDS: SODIUM CHLORIDE 0.9% FLUSH 10 ML FLUSH IV FLUSH SCH ×2 (10:33→22:02)
[2017-02-04] MEDS: ENOXAPARIN SODIUM 30 MG/0.3 ML SYRINGE SQ SCH (12:00)
--- NOTE | 2017-02-04 15:30 | MB ---
cc: AMBREEN SZYMANSKI DATE OF CONSULTATION: 02/04/2017 1980 HISTORY OF PRESENT ILLNESS A 36-year-old female that recently moved to this area to live with her mother with her son from [place], [place] about 4 weeks ago. She presented for evaluation of chest wound. She underwent tricuspid valve replacement on 12/10/2016, [place] tissue valve at [facility] secondary to tricuspid valve endocarditis with history of IV drug use, heroin. Preoperatively her hospitalization was complicated by prolonged hospital 6-week admission with multisystem organ failure, respiratory failure, long-term ventilation followed by tracheostomy, also acute kidney injury requiring multiple dialysis sessions. She apparently was seen by primary care physician Dr. Taye Griffiths which was her mother's physician. She had also been taking Motrin 800 mg b.i.d. since her discharge because of pain. She was started on Suboxone in [place] after discharge and then she was given a prescription by the primary for morphine sulfate 30 mg b.i.d. She noticed 2 weeks ago she had a lump on her chest, kind of red and itchy and after admission to the emergency room she had two small ulcerations with serous drainage. The top ulcer is approximately 1.5 x 1 centimeter superficial and the second is also about the same. There is no protruding wires, there is some yellowish drainage which grew staph MRSA positive. At this time blood cultures were negative. We were consulted to evaluate for possible sternal wound infection. The patient states she has been drug free for 110 days, however she has been taking pain medications including Suboxone at home. PAST MEDICAL HISTORY Tricuspid valve endocarditis complicated with long-term hospitalization approximately 6 weeks with multisystem organ failure, respiratory failure, acute kidney injury with dialysis. PAST SURGICAL HISTORY Surgeries include tricuspid valve replacement 12/10/2016, tracheostomy with reversal, Perma-Cath with reversal, tubal ligation. ALLERGIES PENICILLIN, SULFA, IODINE, SEAFOOD. MEDICATIONS Home meds include: 1. DuoNebs p.r.n. 2. Metoprolol 25 b.i.d. 3. Aspirin 325 daily. 4. She had been taking 800 mg of Ibuprofen b.i.d. 5. Oxycodone 30 p.o. b.i.d. 6. Suboxone 8/2 mg film sublingual t.i.d. 7. Hydroxyzine p.r.n. 8. Mag-Oxide. 9. B complex. FAMILY HISTORY Both parents alive with diabetes, hypertension. SOCIAL HISTORY The patient is single, lives with her mother, one child. No alcohol. She has been smoking half pack of cigarettes for the last 15 years. REVIEW OF SYSTEMS GENERAL: No night sweats, fever, heat and cold intolerance. SKIN: Positive for itching, no hives. HEENT: No blurred vision, hearing loss. RESPIRATORY: No cough, shortness of breath. CARDIOVASCULAR: No chest pain. No paroxysmal nocturnal dyspnea. No orthopnea. GASTROINTESTINAL: No diarrhea, vomiting. GENITOURINARY: No burning frequency, urgency. ANIMAL NUTRITIONIST: No history of TIA, CVA, seizure disorder. ENDOCRINOLOGY: Positive for history of recent acute kidney injury. PHYSICAL EXAMINATION VITAL SIGNS: Blood pressure 110/60, heart rate of 80, afebrile. GENERAL: Patient is awake, alert, no acute distress. HEENT: Head is normocephalic, atraumatic. Pupils equal and reactive. Oral mucosa pink, moist. NECK: Supple. No JVD. HEART: Heart sounds S1-S2, regular rate and rhythm. No rubs, murmurs, gallops. LUNGS: Clear to auscultation. No wheezes, rales or rhonchi. ABDOMEN: Soft, nontender. No masses or organomegaly. EXTREMITIES: Reveal trace edema. SKIN: She has midsternal sternotomy with two areas of superficial wounds as described in the above HPI with some purulent yellowish drainage. No wires are exposed. LABORATORY FINDINGS Shows hemoglobin 8.4, hematocrit 25, white cell count 6, platelet count of 277. Sodium 136, potassium 4.9, BUN of 46, creatinine 2.06, AST 40, ALT 54. Urinalysis shows some trace leuko esterase, moderate blood, few WBCs. Microbiology staph aureus in the chest wound culture. Blood cultures negative x5 days. IMAGING STUDIES They did do a renal ultrasound which was unremarkable. IMPRESSION This is a 36-year-old female with history of tricuspid valve endocarditis, also post sternal wound infection with MRSA superficial wound at this time. It will be evaluated by Dr. Ambreen Szymanski and evaluated for possible placement of a Prevena wound dressing vacuum and will need to have continued antibiotic therapy. Further evaluation by any radiological exams to be evaluated by Dr. Szymanski Dictated by: RAVIN Pichardo Ambreen MD AMANDA Manzanares/ALESSANDRA /2:16 PM /3:21 PM
[2017-02-05 05:40] VITALS: BP 119/56; PULSE 69; RESP 16; TEMP 97.9; O2SAT 100
[2017-02-05] MEDS: SODIUM CHLOR 0.9% 1000 ML INJ 1,000 ML IV SCH ×2 (06:28→16:29)
[2017-02-05 08:00] VITALS: BP 120/59; PULSE 76; RESP 18; TEMP 98.2; O2SAT 100
[2017-02-05] MEDS: FOLIC ACID 1 MG TAB PO SCH (08:12)
[2017-02-05] MEDS: VITAMIN B COMPLEX/VIT C TAB PO SCH (08:12)
[2017-02-05] MEDS: oxyCODONE HCL 10 MG CONTROLLED RELEASE TAB PO SCH ×2 (08:12→21:00)
[2017-02-05] MEDS: DAPTOmycin INJ 360 MG in SODIUM CHLORIDE 0.9% INJ 100 ML IV SCH (08:13)
[2017-02-05] MEDS: METOPROLOL TARTRATE 25 MG TAB PO SCH ×2 (08:13→21:00)
[2017-02-05] MEDS: COLLAGENASE OINT 30 GM TUBE TOPICAL SCH (08:17)
[2017-02-05] MEDS: DOCUSATE SODIUM 50 MG/SENNA 8.6 MG TAB PO SCH ×2 (08:17→21:00)
[2017-02-05] MEDS: SODIUM CHLORIDE 0.9% FLUSH 10 ML FLUSH IV FLUSH SCH ×2 (08:17→21:00)
[2017-02-05 08:30] LABS: AUTOMATED NEUTROPHIL # 3.2 TH/MM3 (1.8-7.7); BASOPHIL # 0.1 TH/MM3 (0-0.2); BASOPHIL % 1.2 % (0.0-2.0); EOSINOPHIL # 0.4 TH/MM3 (0-0.4); EOSINOPHIL % 6.2 % (0.0-4.0); HEMATOCRIT 26.1 % (35.0-46.0); HEMO FLAGS DIFF FINAL; LYMPHOCYTE # 2.2 TH/MM3 (1.0-4.8); MEAN CELL VOLUME 81.5 FL (80.0-100.0); MEAN CORPUSCULAR HEMOGLOBIN 26.8 PG (27.0-34.0); MEAN CORPUSCULAR HGB CONC 32.9 % (32.0-36.0); NEUT % 49.6 % (16.0-70.0); PLATELET COUNT 315 TH/MM3 (150-450); RED CELL DISTRIBUTION WIDTH 16.4 % (11.6-17.2); WHITE BLOOD COUNT 6.4 TH/MM3 (4.0-11.0)
[2017-02-05 08:37] LABS: ANION GAP 8 MEQ/L (5-15); AST (GOT) 48 U/L (15-37); BICARBONATE 25.1 MEQ/L (21.0-32.0); BLOOD UREA NITROGEN 49 MG/DL (7-18); CHLORIDE 104 MEQ/L (98-107); GLOMERULAR FILTRATION RATE 29 ML/MIN (>89); POTASSIUM 4.8 MEQ/L (3.5-5.1); SODIUM (NA) 137 MEQ/L (136-145)
[2017-02-05 08:38] LABS: ALT (GPT) 65 U/L (10-53)
[2017-02-05 08:40] LABS: ALKALINE PHOSPHATASE 123 U/L (45-117); TOTAL BILIRUBIN ADULT 0.3 MG/DL (0.2-1.0)
[2017-02-05 12:00] VITALS: BP 126/65; PULSE 77; RESP 18; TEMP 98.1; O2SAT 99
[2017-02-05] MEDS: ENOXAPARIN SODIUM 30 MG/0.3 ML SYRINGE SQ SCH (12:00)
[2017-02-05 16:00] VITALS: BP 122/59; PULSE 87; RESP 18; TEMP 98.3; O2SAT 99
--- NOTE | 2017-02-05 16:53 | PD.CAR.PN ---
CVT Progress Note Subjective/Hospital Course: doing well, prevena dressing to chest, wants to go home will need to get plan for antibiotics from ID will leave prevena dressing in place x 7 days pt can be seen in our office for further eval in one week and for removal / and or removal by C on day 7 Objective: GENERAL: SKIN: Warm and dry. prevena dressing to chest HEAD: Normocephalic. EYES: No scleral icterus. No injection or drainage. NECK: Supple, trachea midline. No JVD or lymphadenopathy. CARDIOVASCULAR: Regular rate and rhythm without murmurs, gallops, or rubs. faint edema lower ext RESPIRATORY: Breath sounds equal bilaterally. No accessory muscle use. GASTROINTESTINAL: Abdomen soft, non-tender, nondistended. MUSCULOSKELETAL: No cyanosis, or edema. BACK: Nontender without obvious deformity. No CVA tenderness. Vital Signs Date Time Temp Pulse Resp B/P (MAP) Pulse Ox O2 Delivery O2 Flow Rate FiO2 02/05/17 08:00 98.2 76 18 120/59 (79) 100 02/05/17 05:40 97.9 69 16 119/56 (77) 100 02/04/17 23:08 98.1 75 16 128/59 (82) 100 02/04/17 20:15 Room Air 02/04/17 19:40 98.7 77 16 99/53 (68) 94 Labs: Laboratory Tests Test 02/05/17 06:55 White Blood Count 6.4 TH/MM3 (4.0-11.0) Red Blood Count 3.20 MIL/MM3 (4.00-5.30) Hemoglobin 8.6 GM/DL (11.6-15.3) Hematocrit 26.1 % (35.0-46.0) Mean Corpuscular Volume 81.5 FL (80.0-100.0) Mean Corpuscular Hemoglobin 26.8 PG (27.0-34.0) Mean Corpuscular Hemoglobin Concent 32.9 % (32.0-36.0) Red Cell Distribution Width 16.4 % (11.6-17.2) Platelet Count 315 TH/MM3 (150-450) Mean Platelet Volume 5.8 FL (7.0-11.0) Neutrophils (%) (Auto) 49.6 % (16.0-70.0) Lymphocytes (%) (Auto) 34.0 % (9.0-44.0) Monocytes (%) (Auto) 9.0 % (0.0-8.0) Eosinophils (%) (Auto) 6.2 % (0.0-4.0) Basophils (%) (Auto) 1.2 % (0.0-2.0) Neutrophils # (Auto) 3.2 TH/MM3 (1.8-7.7) Lymphocytes # (Auto) 2.2 TH/MM3 (1.0-4.8) Monocytes # (Auto) 0.6 TH/MM3 (0-0.9) Eosinophils # (Auto) 0.4 TH/MM3 (0-0.4) Basophils # (Auto) 0.1 TH/MM3 (0-0.2) CBC Comment DIFF FINAL Differential Comment Blood Urea Nitrogen 49 MG/DL (7-18) Creatinine 1.95 MG/DL (0.50-1.00) Random Glucose 97 MG/DL (74-106) Total Protein 7.5 GM/DL (6.4-8.2) Albumin 2.9 GM/DL (3.4-5.0) Calcium Level 11.1 MG/DL (8.5-10.1) Alkaline Phosphatase 123 U/L (45-117) Aspartate Amino Transf (AST/SGOT) 48 U/L (15-37) Alanine Aminotransferase (ALT/SGPT) 65 U/L (10-53) Total Bilirubin 0.3 MG/DL (0.2-1.0) Sodium Level 137 MEQ/L (136-145) Potassium Level 4.8 MEQ/L (3.5-5.1) Chloride Level 104 MEQ/L (98-107) Carbon Dioxide Level 25.1 MEQ/L (21.0-32.0) Anion Gap 8 MEQ/L (5-15) Estimat Glomerular Filtration Rate 29 ML/MIN (>89) Result Diagram: 02/05/1765402/05/17654 (1) History of tricuspid valve replacement Plan: continue antibiotics per ID/ leave prevena dressing in place total of 7 days, can be followed by our office as outpt (2) Postoperative infection Problem Qualifiers (1) Postoperative infection: Sahara Andino Feb 05, 2017 16:53
[2017-02-05 19:40] VITALS: BP 120/59; PULSE 67; RESP 16; TEMP 97.6; O2SAT 100
[2017-02-06 00:03] VITALS: BP 120/73; PULSE 74; RESP 16; TEMP 98.6; O2SAT 99
[2017-02-06 03:30] VITALS: BP 117/65; PULSE 64; RESP 16; TEMP 98.5; O2SAT 100
[2017-02-06] MEDS: SODIUM CHLOR 0.9% 1000 ML INJ 1,000 ML IV SCH ×3 (03:35→20:33)
[2017-02-06] MEDS: hydrOXYzine HCL 50 MG TAB PO PRN (05:13)
[2017-02-06] MEDS: METOPROLOL TARTRATE 25 MG TAB PO SCH ×2 (07:57→20:32)
[2017-02-06] MEDS: oxyCODONE HCL 10 MG CONTROLLED RELEASE TAB PO SCH ×2 (07:57→20:32)
[2017-02-06] MEDS: VITAMIN B COMPLEX/VIT C TAB PO SCH (07:57)
[2017-02-06] MEDS: FOLIC ACID 1 MG TAB PO SCH (07:57)
[2017-02-06 08:00] VITALS: BP 143/65; PULSE 72; RESP 18; TEMP 98.6; O2SAT 100
[2017-02-06] MEDS: DOCUSATE SODIUM 50 MG/SENNA 8.6 MG TAB PO SCH ×2 (09:00→20:33)
[2017-02-06] MEDS: SODIUM CHLORIDE 0.9% FLUSH 10 ML FLUSH IV FLUSH SCH ×2 (09:00→20:33)
[2017-02-06] MEDS: COLLAGENASE OINT 30 GM TUBE TOPICAL SCH (09:25)
--- NOTE | 2017-02-06 11:00 | HHI.PR ---
Subjective History of Present Illness Patient seen on 02/05/17 same still have sternal wound infection s/p Prevena wound vaccum no acute issue Infectious disease and wound care input noted on Cubicin per ID recommendation Cardiovascular seen the patient input noted. Review of Systems Constitutional Constitutional: Fatigue, Weakness Integumentary Skin: Wounds Skin Remarks mid sternal wound with redness Vitals/Results Vital Signs Vital Signs Date Time Temp Pulse Resp B/P (MAP) Pulse Ox O2 Delivery O2 Flow Rate FiO2 02/06/17 08:00 Room Air 02/06/17 08:00 98.6 72 18 143/65 (91) 100 02/06/17 03:30 98.5 64 16 117/65 (82) 100 02/06/17 00:03 98.6 74 16 120/73 (89) 99 02/05/17 20:15 Room Air 02/05/17 19:40 97.6 67 16 120/59 (79) 100 02/05/17 16:00 98.3 87 18 122/59 (80) 99 02/05/17 12:00 98.1 77 18 126/65 (85) 99 CBC/BMP: 02/05/17 0655 02/05/17 0655 Physical Exam General General Appearance: Well Developed, Well Nourished, No Acute Distress, Comfortable Eyes Eye Exam: Sclera White, Extraocular Movement Intact Throat Throat Exam: Oral Mucosa [place] & Moist, Oral Pharynx Normal Neck Neck Exam: Neck Supple, Trachea Midline Pulmonary Resp Exam: Clear Bilaterally, Breath Sounds Equal, No Distress Cardiology CV Exam: Regular, Normal Sinus Rhythm, Good Perfusion Chest/Breast Chest/Breast Remarks mid sternal wound with erythema. Gastrointestinal/Abdomen GI Exam: Soft, Non-Tender, Bowel Sounds Present Musculoskeletal MS Exam: Joints Intact Integumentary Skin Exam: Warm, Dry Skin Remarks mid sternal wound with erythema. Extremeties Extremities Exam: No Edema, Pedal Pulses Palpable Neurologic Neuro Exam: Alert, Awake, Oriented, Moving All Extremities, No Focal Deficits Psychiatric Psych Exam: Appropriate Responses VTE Prophylaxis VTE Prophylaxis Meds: Lovenox PUD Prophylasis PUD Prophylaxis: Protonix Assessment/Plan Assessment/Plan ASSESSMENT/PLAN This is a 36-year female who came to the ER diagnosed with: 1. 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 wound culture grows MRSA Infectious disease and wound care input noted on Cubicin .Patient have Prevena wound vacuum on Cardiovascular surgeon seen the patient.input noted need 6 week IV Antibiotic per ID Recommendation. Further recommendation per consultants. 2. History of IV drug abuse. 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 Advised to discontinue IV drug abuse. The patient verbalized understanding. 3. Renal failure. We will monitor BUN and creatinine. nephrology input noted ..better 4. Anemia. checked iron study, B12, folic acid level...noted 5. DVT prophylaxis. Lovenox 30 mg subcutaneous daily. 6. GI prophylaxis Protonix 40 mg p.o. daily Check CBC with diff CMP in AM. We are going to manage the patient on a daily basis and make recommendations on a daily basis. Discussed Condition with: Patient Acosta Neil MD Feb 06, 2017 11:00
--- NOTE | 2017-02-06 11:03 | HHI.PR ---
Subjective History of Present Illness Patient same still have sternal wound infection s/p Prevena wound vaccum no acute issue Infectious disease and wound care input noted on Cubicin per ID recommendation Cardiovascular seen the patient input noted. discharge plan per ID. Review of Systems Constitutional Constitutional: Fatigue, Weakness Integumentary Skin: Wounds Skin Remarks mid sternal wound with redness Vitals/Results Vital Signs Vital Signs Date Time Temp Pulse Resp B/P (MAP) Pulse Ox O2 Delivery O2 Flow Rate FiO2 02/06/17 08:00 Room Air 02/06/17 08:00 98.6 72 18 143/65 (91) 100 02/06/17 03:30 98.5 64 16 117/65 (82) 100 02/06/17 00:03 98.6 74 16 120/73 (89) 99 02/05/17 20:15 Room Air 02/05/17 19:40 97.6 67 16 120/59 (79) 100 02/05/17 16:00 98.3 87 18 122/59 (80) 99 02/05/17 12:00 98.1 77 18 126/65 (85) 99 CBC/BMP: 02/05/17 0655 02/05/17 0655 Physical Exam General General Appearance: Well Developed, Well Nourished, No Acute Distress, Comfortable Eyes Eye Exam: Sclera White, Extraocular Movement Intact Throat Throat Exam: Oral Mucosa [place] & Moist, Oral Pharynx Normal Neck Neck Exam: Neck Supple, Trachea Midline Pulmonary Resp Exam: Clear Bilaterally, Breath Sounds Equal, No Distress Cardiology CV Exam: Regular, Normal Sinus Rhythm, Good Perfusion Chest/Breast Chest/Breast Remarks mid sternal wound with erythema. Gastrointestinal/Abdomen GI Exam: Soft, Non-Tender, Bowel Sounds Present Musculoskeletal MS Exam: Joints Intact Integumentary Skin Exam: Warm, Dry Skin Remarks mid sternal wound with erythema. Extremeties Extremities Exam: No Edema, Pedal Pulses Palpable Neurologic Neuro Exam: Alert, Awake, Oriented, Moving All Extremities, No Focal Deficits Psychiatric Psych Exam: Appropriate Responses VTE Prophylaxis VTE Prophylaxis Meds: Lovenox PUD Prophylasis PUD Prophylaxis: Protonix Assessment/Plan Assessment/Plan ASSESSMENT/PLAN This is a 36-year female who came to the ER diagnosed with: 1. 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 wound culture grows MRSA Infectious disease and wound care input noted on Cubicin .Patient have Prevena wound vacuum on Cardiovascular surgeon seen the patient.input noted need 6 week IV Antibiotic per ID Recommendation. discharge plan per ID. Further recommendation per consultants. 2. History of IV drug abuse. 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 Advised to discontinue IV drug abuse. The patient verbalized understanding. 3. Renal failure. We will monitor BUN and creatinine. nephrology input noted ..better 4. Anemia. checked iron study, B12, folic acid level...noted 5. DVT prophylaxis. Lovenox 30 mg subcutaneous daily. 6. GI prophylaxis Protonix 40 mg p.o. daily Check CBC with diff CMP in AM. We are going to manage the patient on a daily basis and make recommendations on a daily basis. Discussed Condition with: Patient Acosta Neil MD Feb 06, 2017 11:03
[2017-02-06] MEDS: ENOXAPARIN SODIUM 30 MG/0.3 ML SYRINGE SQ SCH (11:13)
[2017-02-06 12:00] VITALS: BP 119/58; PULSE 78; RESP 18; TEMP 98.6; O2SAT 99
--- NOTE | 2017-02-06 14:17 | HHI.FF ---
Infusion Therapy Location of Infusion Therapy: Home Health Care IV Infusion Order Patient Information Patient Weight 60.2 kg Diagnosis: (1) Abscess Diagnosis sternal wound - MRSA Coded Allergies: Penicillins (Verified Allergy, Severe, 01/29/17) Sulfa (Sulfonamide Antibiotics) (Verified Allergy, Severe, 01/29/17) amoxicillin (Verified Allergy, Severe, 01/29/17) iodine (Verified Allergy, Severe, 01/29/17) Uncoded Allergies: seafood (Allergy, Severe, 01/29/17) Administer Medication Daptomycin q 24 hours 360 mg IV Stop Treatment: Mar 13, 2017 Additional Information Venous access: Other Additional Instructions [x] Peripheral flush and dressing changes per protocol [x] Implanted port and central wrist liner: * Implanted port: 10 ml Normal Saline followed by 5 ml Heparin 100 units/ml Heparin flush after each use and monthly to maintain. [] May leave port accessed during therapy. [] May leave peripheral site accessed for duration of therapy. [x] If patient has SOB or respiratory distress, check oxygen saturation. If less than 90% or clinical signs of respiratory distress, administer oxygen at 2 L/min. via nasal cannula and notify physician. [x] Anaphylaxis/Reaction orders: * Stop infusion. * Keep IV line open with saline flush. * Notify physician. * Monitor vital signs every 15 minutes until symptoms resolve. * Check Oxygen saturation; Oxygen at 2 L/min. via nasal cannula if less than 90% or clinical signs of respiratory distress. * Administer diphenhydramine (Benadryl) 25 mg IV STAT, (unless patient has received as pre-med). May repeat once, if necessary. * Solu-Cortef 250 mg IVP over 30-60 seconds, use 100 mg vials for each dissolution. * Epinephrine (1mg/1 ml) 0.3 mg subcutaneously or IVP now with any signs of respiratory distress. * Check with physician for new additional pre-med orders if patient is re- challenged or re-treated. [x] May remove PICC line when treatment complete, after confirming with Physician. [x] If the patient is admitted to the hospital, the ED, or transferred via [facility] , complete transfer form including medication reconciliation order sheet. Laboratory Tests Weekly Labs: BMP, LFT's (Hepatic function test), Serum CK Levels Husam Pappas MD Feb 06, 2017 14:17
--- NOTE | 2017-02-06 14:37 | HHI.IDPN ---
Note Infectious Disease Note Patient feels sore at the chest. No other complaints. No fever. Has Prevena dressing with Vac over sternum. PAST MEDICAL HISTORY 1. Tricuspid valve endocarditis 2. History of IV drug abuse prior to cardiac valve replacement. November 2016. 3. Irritable bowel syndrome, 4. Gastroesophageal reflux disease, 5. Asthma. ALLERGIES PENICILLIN SULFA AMOXICILLIN IODINE ANTIBIOTICS Daptomycin. OBJECTIVE: Vital Signs Date Time Temp Pulse Resp B/P (MAP) Pulse Ox O2 Delivery O2 Flow Rate FiO2 02/06/17 12:00 98.6 78 18 119/58 (78) 99 02/06/17 08:00 Room Air 02/06/17 08:00 98.6 72 18 143/65 (91) 100 02/06/17 03:30 98.5 64 16 117/65 (82) 100 02/06/17 00:03 98.6 74 16 120/73 (89) 99 02/05/17 20:15 Room Air 02/05/17 19:40 97.6 67 16 120/59 (79) 100 02/05/17 16:00 98.3 87 18 122/59 (80) 99 Laboratory Tests Test 02/05/17 06:55 White Blood Count 6.4 TH/MM3 Red Blood Count 3.20 MIL/MM3 Hemoglobin 8.6 GM/DL Hematocrit 26.1 % Mean Corpuscular Volume 81.5 FL Mean Corpuscular Hemoglobin 26.8 PG Mean Corpuscular Hemoglobin Concent 32.9 % Red Cell Distribution Width 16.4 % Platelet Count 315 TH/MM3 Mean Platelet Volume 5.8 FL Neutrophils (%) (Auto) 49.6 % Lymphocytes (%) (Auto) 34.0 % Monocytes (%) (Auto) 9.0 % Eosinophils (%) (Auto) 6.2 % Basophils (%) (Auto) 1.2 % Neutrophils # (Auto) 3.2 TH/MM3 Lymphocytes # (Auto) 2.2 TH/MM3 Monocytes # (Auto) 0.6 TH/MM3 Eosinophils # (Auto) 0.4 TH/MM3 Basophils # (Auto) 0.1 TH/MM3 CBC Comment DIFF FINAL Differential Comment Laboratory Tests Test 02/05/17 06:55 Blood Urea Nitrogen 49 MG/DL Creatinine 1.95 MG/DL Random Glucose 97 MG/DL Total Protein 7.5 GM/DL Albumin 2.9 GM/DL Calcium Level 11.1 MG/DL Alkaline Phosphatase 123 U/L Aspartate Amino Transf (AST/SGOT) 48 U/L Alanine Aminotransferase (ALT/SGPT) 65 U/L Total Bilirubin 0.3 MG/DL Sodium Level 137 MEQ/L Potassium Level 4.8 MEQ/L Chloride Level 104 MEQ/L Carbon Dioxide Level 25.1 MEQ/L Anion Gap 8 MEQ/L Estimat Glomerular Filtration Rate 29 ML/MIN Microbiology Date/Time Source Procedure Growth Status 02/04/17 05:45 Urine Clean Catch Urine Culture - Final <10,000 CFU/ML GRAM NEGATIVE RENÉ Complete PHYSICAL EXAMINATION GENERAL: No acute distress. HEENT: No icterus. Oropharynx moist mucosa without lesions. NECK: Supple. No adenopathy. LUNGS: Clear to auscultation. CHEST: Sternal wound with a Vac prevena dressing in place. No erythema. HEART: Regular S1-S2 without audible murmurs. ABDOMEN: Bowel sounds present, soft. EXTREMITIES: No clubbing, cyanosis or edema. SKIN: No rash. NEUROLOGIC: Nonfocal PSYCHIATRIC: Calm and cooperative. IMPRESSION 1. Sternal wound infection. MRSA. 2. Status post tricuspid valve replacement via open sternal thoracotomy 3. Acute kidney disease - stage 4. RECOMMENDATIONS 1. Continue IV Cubicin IV x 6 weeks. Because of potentially reversible kidney disease. will avoid vancomycin. 2. IV antibiotics written for case management to arrange. D/W case management. 3. Reconsult renal to recommend type if IV catheter for [facility] IV antibiotics. 4. Follow up with CV surgery outpatient on discharge. Once above arrangements are finalized she can be discharged from ID standpoint. Husam Pappas MD Feb 06, 2017 14:37
[2017-02-06 16:00] VITALS: BP 97/50; PULSE 76; RESP 18; TEMP 98.5; O2SAT 98
[2017-02-06 19:49] VITALS: BP 103/53; PULSE 89; RESP 16; TEMP 98.4; O2SAT 100
[2017-02-07] VITALS: BP_SYST 107; BP_DIAS 52; BP_DIAS 60; PULSE 67; PULSE 70; RESP 20; TEMP 98.2; TEMP 98.3; O2SAT 100
[2017-02-07] MEDS: SODIUM CHLOR 0.9% 1000 ML INJ 1,000 ML IV SCH ×2 (06:41→21:00)
[2017-02-07 06:56] LABS: AUTOMATED NEUTROPHIL # 3.1 TH/MM3 (1.8-7.7); BASOPHIL # 0.1 TH/MM3 (0-0.2); BASOPHIL % 1.3 % (0.0-2.0); EOSINOPHIL # 0.4 TH/MM3 (0-0.4); EOSINOPHIL % 6.2 % (0.0-4.0); HEMATOCRIT 26.9 % (35.0-46.0); HEMO FLAGS DIFF FINAL; LYMPH % 33.4 % (9.0-44.0); LYMPHOCYTE # 2.1 TH/MM3 (1.0-4.8); MEAN CORPUSCULAR HEMOGLOBIN 26.2 PG (27.0-34.0); MONO % 9.1 % (0.0-8.0); PLATELET COUNT 289 TH/MM3 (150-450); RED BLOOD COUNT 3.28 MIL/MM3 (4.00-5.30); RED CELL DISTRIBUTION WIDTH 16.6 % (11.6-17.2); WHITE BLOOD COUNT 6.2 TH/MM3 (4.0-11.0)
[2017-02-07 07:18] LABS: ANION GAP 8 MEQ/L (5-15); AST (GOT) 32 U/L (15-37); BICARBONATE 24.4 MEQ/L (21.0-32.0); BLOOD UREA NITROGEN 41 MG/DL (7-18); CHLORIDE 104 MEQ/L (98-107); GLOMERULAR FILTRATION RATE 32 ML/MIN (>89); POTASSIUM 4.8 MEQ/L (3.5-5.1); SODIUM (NA) 136 MEQ/L (136-145)
[2017-02-07 07:20] LABS: ALT (GPT) 57 U/L (10-53)
[2017-02-07 07:22] LABS: ALKALINE PHOSPHATASE 116 U/L (45-117); TOTAL BILIRUBIN ADULT 0.3 MG/DL (0.2-1.0)
[2017-02-07 08:00] VITALS: BP 116/66; PULSE 85; RESP 20; TEMP 98.7; O2SAT 100
[2017-02-07] MEDS: SODIUM CHLORIDE 0.9% FLUSH 10 ML FLUSH IV FLUSH SCH ×2 (09:00→20:55)
[2017-02-07] MEDS: COLLAGENASE OINT 30 GM TUBE TOPICAL SCH (09:00)
[2017-02-07] MEDS: DOCUSATE SODIUM 50 MG/SENNA 8.6 MG TAB PO SCH ×2 (09:23→21:00)
[2017-02-07] MEDS: FOLIC ACID 1 MG TAB PO SCH (09:23)
[2017-02-07] MEDS: METOPROLOL TARTRATE 25 MG TAB PO SCH ×2 (09:24→20:56)
[2017-02-07] MEDS: oxyCODONE HCL 10 MG CONTROLLED RELEASE TAB PO SCH ×2 (09:24→20:56)
[2017-02-07] MEDS: DAPTOmycin INJ 360 MG in SODIUM CHLORIDE 0.9% INJ 100 ML IV SCH (11:20)
[2017-02-07] MEDS: VITAMIN B COMPLEX/VIT C TAB PO SCH (11:20)
[2017-02-07] MEDS: ENOXAPARIN SODIUM 30 MG/0.3 ML SYRINGE SQ SCH (11:26)
--- NOTE | 2017-02-07 11:36 | HHI.PR ---
Subjective History of Present Illness Patient same still have sternal wound infection s/p Prevena dressing and wound vaccum no acute issue Infectious disease and wound care input noted on Cubicin per ID recommendation Cardiovascular seen the patient input noted. discharge plan noted per ID. Review of Systems Constitutional Constitutional: Fatigue, Weakness Integumentary Skin: Wounds Skin Remarks mid sternal wound with redness Vitals/Results Vital Signs Vital Signs Date Time Temp Pulse Resp B/P (MAP) Pulse Ox O2 Delivery O2 Flow Rate FiO2 02/07/17 08:00 Room Air 02/07/17 08:00 98.7 85 20 116/66 (83) 100 02/07/17 00:00 98.2 70 20 107/52 (70) 100 02/07/17 00:00 98.3 67 20 107/60 (76) 100 02/06/17 20:15 Room Air 02/06/17 19:49 98.4 89 16 103/53 (70) 100 02/06/17 16:00 98.5 76 18 97/50 (66) 98 02/06/17 12:00 98.6 78 18 119/58 (78) 99 CBC/BMP: 02/07/17 0613 02/07/17 0613 Lab Results Laboratory Tests Test 02/07/17 06:13 White Blood Count 6.2 TH/MM3 Red Blood Count 3.28 MIL/MM3 Hemoglobin 8.6 GM/DL Hematocrit 26.9 % Mean Corpuscular Volume 82.0 FL Mean Corpuscular Hemoglobin 26.2 PG Mean Corpuscular Hemoglobin Concent 32.0 % Red Cell Distribution Width 16.6 % Platelet Count 289 TH/MM3 Mean Platelet Volume 5.9 FL Neutrophils (%) (Auto) 50.0 % Lymphocytes (%) (Auto) 33.4 % Monocytes (%) (Auto) 9.1 % Eosinophils (%) (Auto) 6.2 % Basophils (%) (Auto) 1.3 % Neutrophils # (Auto) 3.1 TH/MM3 Lymphocytes # (Auto) 2.1 TH/MM3 Monocytes # (Auto) 0.6 TH/MM3 Eosinophils # (Auto) 0.4 TH/MM3 Basophils # (Auto) 0.1 TH/MM3 CBC Comment DIFF FINAL Differential Comment Blood Urea Nitrogen 41 MG/DL Creatinine 1.80 MG/DL Random Glucose 82 MG/DL Total Protein 7.6 GM/DL Albumin 3.0 GM/DL Calcium Level 10.7 MG/DL Alkaline Phosphatase 116 U/L Aspartate Amino Transf (AST/SGOT) 32 U/L Alanine Aminotransferase (ALT/SGPT) 57 U/L Total Bilirubin 0.3 MG/DL Sodium Level 136 MEQ/L Potassium Level 4.8 MEQ/L Chloride Level 104 MEQ/L Carbon Dioxide Level 24.4 MEQ/L Anion Gap 8 MEQ/L Estimat Glomerular Filtration Rate 32 ML/MIN Physical Exam General General Appearance: Well Developed, Well Nourished, No Acute Distress, Comfortable Eyes Eye Exam: Sclera White, Extraocular Movement Intact Throat Throat Exam: Oral Mucosa [place] & Moist, Oral Pharynx Normal Neck Neck Exam: Neck Supple, Trachea Midline Pulmonary Resp Exam: Clear Bilaterally, Breath Sounds Equal, No Distress Cardiology CV Exam: Regular, Normal Sinus Rhythm, Good Perfusion Chest/Breast Chest/Breast Remarks mid sternal wound with erythema. Gastrointestinal/Abdomen GI Exam: Soft, Non-Tender, Bowel Sounds Present Musculoskeletal MS Exam: Joints Intact Integumentary Skin Exam: Warm, Dry Skin Remarks mid sternal wound with erythema. Extremeties Extremities Exam: No Edema, Pedal Pulses Palpable Neurologic Neuro Exam: Alert, Awake, Oriented, Moving All Extremities, No Focal Deficits Psychiatric Psych Exam: Appropriate Responses VTE Prophylaxis VTE Prophylaxis Meds: Lovenox PUD Prophylasis PUD Prophylaxis: Protonix Assessment/Plan Assessment/Plan ASSESSMENT/PLAN This is a 36-year female who came to the ER diagnosed with: 1. 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 wound culture grows MRSA Infectious disease and wound care input noted on Cubicin .Patient have Prevena dressing wound vacuum on Cardiovascular surgeon seen the patient.input noted need 6 week IV Antibiotic per ID Recommendation. discharge plan noted per ID. Further recommendation per consultants. 2. History of IV drug abuse. 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 Advised to discontinue IV drug abuse. The patient verbalized understanding. 3. Renal failure. We will monitor BUN and creatinine. nephrology input noted ..better 4. Anemia. checked iron study, B12, folic acid level...noted 5. DVT prophylaxis. Lovenox 30 mg subcutaneous daily. 6. GI prophylaxis Protonix 40 mg p.o. daily Check CBC with diff CMP in AM. We are going to manage the patient on a daily basis and make recommendations on a daily basis. Discussed Condition with: Patient Acosta Neil MD Feb 07, 2017 11:36
[2017-02-07 12:00] VITALS: BP 112/57; PULSE 76; RESP 20; TEMP 98.4; O2SAT 98
[2017-02-07 16:00] VITALS: BP 105/53; PULSE 75; RESP 20; TEMP 98.5; O2SAT 97
--- NOTE | 2017-02-07 16:23 | HHI.NPPN ---
Subjective General Problems: Anemia Renal Failure: Acute Review of Systems Skin Skin Remarks wound anterior chest Objective Data Data Vital Signs Date Time Temp Pulse Resp B/P (MAP) Pulse Ox O2 Delivery O2 Flow Rate FiO2 02/07/17 12:00 98.4 76 20 112/57 (75) 98 02/07/17 08:00 Room Air 02/07/17 08:00 98.7 85 20 116/66 (83) 100 02/07/17 00:00 98.2 70 20 107/52 (70) 100 02/07/17 00:00 98.3 67 20 107/60 (76) 100 02/06/17 20:15 Room Air 02/06/17 19:49 98.4 89 16 103/53 (70) 100 -: 02/07/17 0613 02/07/17 0613 Physical Exam General Appearance: Well Developed, Well Nourished, No Acute Distress, Comfortable Eyes Eye Exam: Sclera White, Extraocular Movement Intact Throat Throat Exam: Oral Mucosa [place] & Moist, Oral Pharynx Normal Neck Neck Exam: Neck Supple, Trachea Midline Pulmonary Resp Exam: Clear Bilaterally, Breath Sounds Equal, No Distress Cardiology CV Exam: Regular, Normal Sinus Rhythm, Good Perfusion Gastrointestinal/Abdomen GI Exam: Soft, Non-Tender, Bowel Sounds Present Musculoskeletal MS Exam: Joints Intact Integumentary Skin Exam: Warm, Dry Extremeties Extremities Exam: No Edema, Pedal Pulses Palpable Neurologic Neuro Exam: Alert, Awake, Oriented, Moving All Extremities, No Focal Deficits Psychiatric Psych Exam: Appropriate Responses PUD Prophylasis PUD Prophylaxis: Protonix Assessment/Plan Discussed Condition With: Patient Assessment Summary: SAMSON/Acute Renal Failure Problem List: (1) Renal insufficiency ICD Codes: N28.9 - Disorder of kidney and ureter, unspecified Status: Acute Plan: There are no prior labs for comparison. SAMSON due to infection, renal function improving Cr 1.8 OK to have PICC Line for prolong antibiotics for Endocarditis (2) Postoperative infection ICD Codes: T81.4XXA - Infection following a procedure, initial encounter Status: Acute Plan: ID and wound have evaluated vancomycin changed to Daptomycin culture + MRSA she is on contact isolation can have midline placed for long-term Abx management (3) Anemia ICD Codes: D64.9 - Anemia, unspecified Status: Acute Plan: Hgb low but stable B12 and folate are not deficient; (4) Hypercalcemia ICD Codes: E83.52 - Hypercalcemia Plan: PTH appropriately low avoid vitamin D administration Problem Qualifiers (1) Postoperative infection: (2) Anemia: Yuri Blanco MD Feb 07, 2017 16:23
[2017-02-07 20:00] VITALS: BP 106/60; PULSE 82; RESP 18; TEMP 98.1; O2SAT 98
[2017-02-08] VITALS: BP 101/54; PULSE 67; RESP 16; TEMP 98.2; O2SAT 99
[2017-02-08] MEDS: SODIUM CHLOR 0.9% 1000 ML INJ 1,000 ML IV SCH ×2 (02:52→21:13)
[2017-02-08 06:00] VITALS: BP 119/74; PULSE 76; RESP 20; TEMP 98.7; O2SAT 100
[2017-02-08 08:00] VITALS: BP 110/53; PULSE 69; RESP 18; TEMP 98.4; O2SAT 100
[2017-02-08] MEDS: SODIUM CHLORIDE 0.9% FLUSH 10 ML FLUSH IV FLUSH SCH ×2 (09:00→21:11)
[2017-02-08] MEDS: oxyCODONE HCL 10 MG CONTROLLED RELEASE TAB PO SCH ×2 (09:10→21:12)
[2017-02-08] MEDS: FOLIC ACID 1 MG TAB PO SCH (09:10)
[2017-02-08] MEDS: METOPROLOL TARTRATE 25 MG TAB PO SCH ×2 (09:10→21:11)
[2017-02-08] MEDS: DOCUSATE SODIUM 50 MG/SENNA 8.6 MG TAB PO SCH ×2 (09:10→21:00)
[2017-02-08] MEDS: VITAMIN B COMPLEX/VIT C TAB PO SCH (09:10)
--- NOTE | 2017-02-08 10:29 | HHI.PR ---
Subjective History of Present Illness Patient same still have sternal wound infection s/p Prevena dressing and wound vaccum no acute issue Infectious disease and wound care input noted on Cubicin per ID recommendation Cardiovascular seen the patient input noted. . waiting for Antibiotic arrangement from insurance company case maker working on it. Review of Systems Constitutional Constitutional: Fatigue, Weakness Integumentary Skin: Wounds Skin Remarks mid sternal wound with redness Vitals/Results Vital Signs Vital Signs Date Time Temp Pulse Resp B/P (MAP) Pulse Ox O2 Delivery O2 Flow Rate FiO2 02/08/17 08:00 98.4 69 18 110/53 (72) 100 02/08/17 06:00 98.7 76 20 119/74 (89) 100 02/08/17 04:00 Room Air 02/08/17 00:00 98.2 67 16 101/54 (70) 99 02/08/17 00:00 Room Air 02/07/17 20:00 Room Air 02/07/17 20:00 98.1 82 18 106/60 (75) 98 02/07/17 16:00 98.5 75 20 105/53 (70) 97 02/07/17 12:00 98.4 76 20 112/57 (75) 98 CBC/BMP: 02/07/17 0613 02/07/17 0613 Physical Exam General General Appearance: Well Developed, Well Nourished, No Acute Distress, Comfortable Eyes Eye Exam: Sclera White, Extraocular Movement Intact Throat Throat Exam: Oral Mucosa [place] & Moist, Oral Pharynx Normal Neck Neck Exam: Neck Supple, Trachea Midline Pulmonary Resp Exam: Clear Bilaterally, Breath Sounds Equal, No Distress Cardiology CV Exam: Regular, Normal Sinus Rhythm, Good Perfusion Chest/Breast Chest/Breast Remarks mid sternal wound with erythema. Gastrointestinal/Abdomen GI Exam: Soft, Non-Tender, Bowel Sounds Present Musculoskeletal MS Exam: Joints Intact Integumentary Skin Exam: Warm, Dry Skin Remarks mid sternal wound with erythema. Extremeties Extremities Exam: No Edema, Pedal Pulses Palpable Neurologic Neuro Exam: Alert, Awake, Oriented, Moving All Extremities, No Focal Deficits Psychiatric Psych Exam: Appropriate Responses VTE Prophylaxis VTE Prophylaxis Meds: Lovenox PUD Prophylasis PUD Prophylaxis: Protonix Assessment/Plan Assessment/Plan ASSESSMENT/PLAN This is a 36-year female who came to the ER diagnosed with: 1. 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 wound culture grows MRSA Infectious disease and wound care input noted on Cubicin .Patient have Prevena dressing wound vacuum on Cardiovascular surgeon seen the patient.input noted need 6 week IV Antibiotic per ID Recommendation. discharge plan noted per ID. Further recommendation per consultants. 2. History of IV drug abuse. 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 Advised to discontinue IV drug abuse. The patient verbalized understanding. 3. Renal failure. We will monitor BUN and creatinine. nephrology input noted ..better 4. Anemia. checked iron study, B12, folic acid level...noted 5. DVT prophylaxis. Lovenox 30 mg subcutaneous daily. 6. GI prophylaxis Protonix 40 mg p.o. daily Check CBC with diff CMP in AM. We are going to manage the patient on a daily basis and make recommendations on a daily basis. Discussed Condition with: Patient Acosta Neil MD Feb 08, 2017 10:29
[2017-02-08 10:39] LABS: AUTOMATED NEUTROPHIL # 4.4 TH/MM3 (1.8-7.7); BASOPHIL # 0.1 TH/MM3 (0-0.2); BASOPHIL % 1.1 % (0.0-2.0); EOSINOPHIL # 0.5 TH/MM3 (0-0.4); EOSINOPHIL % 6.8 % (0.0-4.0); HEMATOCRIT 27.5 % (35.0-46.0); HEMO FLAGS DIFF FINAL; LYMPH % 24.4 % (9.0-44.0); LYMPHOCYTE # 1.8 TH/MM3 (1.0-4.8); MEAN CELL VOLUME 81.8 FL (80.0-100.0); MEAN CORPUSCULAR HEMOGLOBIN 26.9 PG (27.0-34.0); MEAN CORPUSCULAR HGB CONC 32.9 % (32.0-36.0); MONO % 6.3 % (0.0-8.0); NEUT % 61.4 % (16.0-70.0); PLATELET COUNT 292 TH/MM3 (150-450); RED BLOOD COUNT 3.36 MIL/MM3 (4.00-5.30); RED CELL DISTRIBUTION WIDTH 16.4 % (11.6-17.2); WHITE BLOOD COUNT 7.2 TH/MM3 (4.0-11.0)
[2017-02-08 11:04] LABS: ALT (GPT) 53 U/L (10-53); ANION GAP 11 MEQ/L (5-15); AST (GOT) 28 U/L (15-37); BICARBONATE 24.4 MEQ/L (21.0-32.0); BLOOD UREA NITROGEN 37 MG/DL (7-18); CHLORIDE 104 MEQ/L (98-107); GLOMERULAR FILTRATION RATE 33 ML/MIN (>89); POTASSIUM 4.2 MEQ/L (3.5-5.1); SODIUM (NA) 139 MEQ/L (136-145)
[2017-02-08 11:06] LABS: ALKALINE PHOSPHATASE 133 U/L (45-117); TOTAL BILIRUBIN ADULT 0.4 MG/DL (0.2-1.0)
[2017-02-08 12:00] VITALS: BP 111/55; PULSE 80; RESP 18; TEMP 98.2; O2SAT 97
[2017-02-08] MEDS: ENOXAPARIN SODIUM 30 MG/0.3 ML SYRINGE SQ SCH (12:07)
[2017-02-08 16:00] VITALS: BP 125/71; PULSE 77; RESP 18; TEMP 98.5; O2SAT 93
--- NOTE | 2017-02-08 16:48 | RADRPT ---
EXAM DATE/TIME: 02/08/2017 16:14 [place] COMPARISON: No previous studies available for comparison. INDICATIONS : PICC placement. MEDICAL HISTORY : Gastroesophageal reflux disease. Endocarditis. Asthma. IBS. SURGICAL HISTORY : Tricuspid valve replacement. ENCOUNTER: Initial ACUITY: 1 day PAIN SCORE: 7/10 LOCATION: Bilateral chest FINDINGS: There is mild atelectasis of both lung bases. No pleural effusion or pneumothorax. Heart size upper limits of normal. Patient has had previous median sternotomy. A right arm PICC is present. Tip is in the superior vena cava. CONCLUSION: 1. Right arm PICC has its tip in the superior vena cava. 2. Mild bibasilar atelectasis. 3. Upper limits of normal heart size, compensated. Eric Naranjo MD on February 08, 2017 at 16:46 Board Certified Radiologist. This report was verified electronically.
[2017-02-08] MEDS ORDERED: SODIUM CHLORIDE 0.9% FLUSH 10 ML FLUSH IV FLUSH PRN (17:15)
[2017-02-08 21:08] VITALS: BP 113/56; PULSE 71; RESP 16; TEMP 98.9; O2SAT 98
[2017-02-09] VITALS: BP 101/55; PULSE 63; RESP 16; TEMP 98; O2SAT 98
[2017-02-09 04:00] VITALS: BP 101/57; PULSE 69; RESP 18; TEMP 98.1; O2SAT 100
[2017-02-09 07:10] LABS: BASOPHIL # 0.1 TH/MM3 (0-0.2); BASOPHIL % 1.3 % (0.0-2.0); EOSINOPHIL # 0.4 TH/MM3 (0-0.4); EOSINOPHIL % 6.8 % (0.0-4.0); HEMATOCRIT 24.3 % (35.0-46.0); HEMO FLAGS DIFF FINAL; LYMPH % 32.2 % (9.0-44.0); LYMPHOCYTE # 1.9 TH/MM3 (1.0-4.8); MEAN CELL VOLUME 81.7 FL (80.0-100.0); MEAN CORPUSCULAR HEMOGLOBIN 27.2 PG (27.0-34.0); MEAN CORPUSCULAR HGB CONC 33.2 % (32.0-36.0); MONO % 9.3 % (0.0-8.0); NEUT % 50.4 % (16.0-70.0); PLATELET COUNT 270 TH/MM3 (150-450); RED BLOOD COUNT 2.97 MIL/MM3 (4.00-5.30); RED CELL DISTRIBUTION WIDTH 16.5 % (11.6-17.2)
[2017-02-09 07:38] LABS: ALT (GPT) 45 U/L (10-53); ANION GAP 7 MEQ/L (5-15); AST (GOT) 21 U/L (15-37); BICARBONATE 25.4 MEQ/L (21.0-32.0); BLOOD UREA NITROGEN 40 MG/DL (7-18); CHLORIDE 104 MEQ/L (98-107); GLOMERULAR FILTRATION RATE 30 ML/MIN (>89); POTASSIUM 4.4 MEQ/L (3.5-5.1); SODIUM (NA) 136 MEQ/L (136-145)
[2017-02-09 07:41] LABS: ALKALINE PHOSPHATASE 113 U/L (45-117); TOTAL BILIRUBIN ADULT 0.4 MG/DL (0.2-1.0)
[2017-02-09 08:00] VITALS: BP_SYST 69; PULSE 77; RESP 18; TEMP 97.9; O2SAT 100
[2017-02-09] MEDS: FOLIC ACID 1 MG TAB PO SCH (08:41)
[2017-02-09] MEDS: VITAMIN B COMPLEX/VIT C TAB PO SCH (08:41)
[2017-02-09] MEDS: DOCUSATE SODIUM 50 MG/SENNA 8.6 MG TAB PO SCH ×3 (08:42→20:38)
[2017-02-09] MEDS: oxyCODONE HCL 10 MG CONTROLLED RELEASE TAB PO SCH ×2 (08:42→20:38)
[2017-02-09] MEDS: METOPROLOL TARTRATE 25 MG TAB PO SCH ×2 (08:45→20:38)
[2017-02-09] MEDS: SODIUM CHLORIDE 0.9% FLUSH 10 ML FLUSH IV FLUSH SCH ×3 (09:00→20:38)
[2017-02-09] MEDS: DAPTOmycin INJ 360 MG in SODIUM CHLORIDE 0.9% INJ 100 ML IV SCH (09:07)
--- NOTE | 2017-02-09 10:35 | HHI.PR ---
Subjective History of Present Illness Patient same still have sternal wound infection s/p Prevena dressing and wound vaccum no acute issue Infectious disease and wound care input noted on Cubicin per ID recommendation Cardiovascular seen the patient input noted. . waiting for Antibiotic arrangement from insurance [employer] case manager working on it...d/w case finishing machine adjuster. Review of Systems Constitutional Constitutional: Fatigue, Weakness Integumentary Skin: Wounds Skin Remarks mid sternal wound with redness Vitals/Results Vital Signs Vital Signs Date Time Temp Pulse Resp B/P (MAP) Pulse Ox O2 Delivery O2 Flow Rate FiO2 02/09/17 08:00 97.9 77 18 69/ 100 02/09/17 04:00 98.1 69 18 101/57 (72) 100 02/09/17 00:00 Room Air 02/09/17 00:00 98.0 63 16 101/55 (70) 98 02/08/17 21:08 98.9 71 16 113/56 (75) 98 02/08/17 21:08 Room Air 02/08/17 16:00 98.5 77 18 125/71 (89) 93 02/08/17 12:00 98.2 80 18 111/55 (73) 97 CBC/BMP: 02/09/17 0653 02/09/17 0653 Lab Results Laboratory Tests Test 02/09/17 06:53 White Blood Count 6.0 TH/MM3 Red Blood Count 2.97 MIL/MM3 Hemoglobin 8.1 GM/DL Hematocrit 24.3 % Mean Corpuscular Volume 81.7 FL Mean Corpuscular Hemoglobin 27.2 PG Mean Corpuscular Hemoglobin Concent 33.2 % Red Cell Distribution Width 16.5 % Platelet Count 270 TH/MM3 Mean Platelet Volume 5.8 FL Neutrophils (%) (Auto) 50.4 % Lymphocytes (%) (Auto) 32.2 % Monocytes (%) (Auto) 9.3 % Eosinophils (%) (Auto) 6.8 % Basophils (%) (Auto) 1.3 % Neutrophils # (Auto) 3.0 TH/MM3 Lymphocytes # (Auto) 1.9 TH/MM3 Monocytes # (Auto) 0.6 TH/MM3 Eosinophils # (Auto) 0.4 TH/MM3 Basophils # (Auto) 0.1 TH/MM3 CBC Comment DIFF FINAL Differential Comment Blood Urea Nitrogen 40 MG/DL Creatinine 1.88 MG/DL Random Glucose 83 MG/DL Total Protein 7.3 GM/DL Albumin 2.9 GM/DL Calcium Level 10.9 MG/DL Alkaline Phosphatase 113 U/L Aspartate Amino Transf (AST/SGOT) 21 U/L Alanine Aminotransferase (ALT/SGPT) 45 U/L Total Bilirubin 0.4 MG/DL Sodium Level 136 MEQ/L Potassium Level 4.4 MEQ/L Chloride Level 104 MEQ/L Carbon Dioxide Level 25.4 MEQ/L Anion Gap 7 MEQ/L Estimat Glomerular Filtration Rate 30 ML/MIN Physical Exam General General Appearance: Well Developed, Well Nourished, No Acute Distress, Comfortable Eyes Eye Exam: Sclera White, Extraocular Movement Intact Throat Throat Exam: Oral Mucosa [place] & Moist, Oral Pharynx Normal Neck Neck Exam: Neck Supple, Trachea Midline Pulmonary Resp Exam: Clear Bilaterally, Breath Sounds Equal, No Distress Cardiology CV Exam: Regular, Normal Sinus Rhythm, Good Perfusion Chest/Breast Chest/Breast Remarks mid sternal wound with erythema. Gastrointestinal/Abdomen GI Exam: Soft, Non-Tender, Bowel Sounds Present Musculoskeletal MS Exam: Joints Intact Integumentary Skin Exam: Warm, Dry Skin Remarks mid sternal wound with erythema. Extremeties Extremities Exam: No Edema, Pedal Pulses Palpable Neurologic Neuro Exam: Alert, Awake, Oriented, Moving All Extremities, No Focal Deficits Psychiatric Psych Exam: Appropriate Responses VTE Prophylaxis VTE Prophylaxis Meds: Lovenox PUD Prophylasis PUD Prophylaxis: Protonix Assessment/Plan Assessment/Plan ASSESSMENT/PLAN This is a 36-year female who came to the ER diagnosed with: 1. 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 wound culture grows MRSA Infectious disease and wound care input noted on Cubicin .Patient have Prevena dressing wound vacuum on Cardiovascular surgeon seen the patient input noted need 6 week IV Antibiotic per ID Recommendation. discharge plan noted per ID. Further recommendation per consultants. 2. History of IV drug abuse. 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 Advised to discontinue IV drug abuse. The patient verbalized understanding. 3. Renal failure. We will monitor BUN and creatinine. nephrology input noted ..better 4. Anemia. checked iron study, B12, folic acid level...noted 5. DVT prophylaxis. Lovenox 30 mg subcutaneous daily. 6. GI prophylaxis Protonix 40 mg p.o. daily Check CBC with diff CMP in AM. Patient need to sign paper for not use PICC Line for drug abuse or any other non prescribed medicine. and do not crush any medicine prescribed or non prescribed and put in IV Through PICC Line. Patient verbalize understanding and said she will no do that.. We are going to manage the patient on a daily basis and make recommendations on a daily basis. Discussed Condition with: Patient Acosta Neil MD Feb 09, 2017 10:35
[2017-02-09 12:00] VITALS: BP 129/70; PULSE 84; RESP 18; TEMP 98.3; O2SAT 98
[2017-02-09] MEDS: ENOXAPARIN SODIUM 30 MG/0.3 ML SYRINGE SQ SCH (12:10)
[2017-02-09] MEDS: oxyCODONE/ACETAMINOPHEN 5 MG/325 MG TAB PO PRN ×2 (12:11→18:44)
[2017-02-09] MEDS: SODIUM CHLOR 0.9% 1000 ML INJ 1,000 ML IV SCH ×2 (12:12→19:51)
[2017-02-09] MEDS: COLLAGENASE OINT 30 GM TUBE TOPICAL SCH (12:12)
[2017-02-09 16:10] VITALS: BP 130/70; PULSE 84; RESP 17; TEMP 98.1; O2SAT 98
[2017-02-09 20:00] VITALS: BP 126/83; PULSE 89; RESP 16; TEMP 98.2; O2SAT 97
[2017-02-10] VITALS: BP 127/71; PULSE 70; RESP 19; TEMP 98.3; O2SAT 97
[2017-02-10 04:00] VITALS: BP 131/83; PULSE 83; RESP 19; TEMP 98; O2SAT 98
[2017-02-10 05:28] LABS: AUTOMATED NEUTROPHIL # 2.8 TH/MM3 (1.8-7.7); BASOPHIL # 0.2 TH/MM3 (0-0.2); BASOPHIL % 2.7 % (0.0-2.0); EOSINOPHIL # 0.4 TH/MM3 (0-0.4); EOSINOPHIL % 7.2 % (0.0-4.0); HEMATOCRIT 25.5 % (35.0-46.0); HEMO FLAGS DIFF FINAL; LYMPH % 35.6 % (9.0-44.0); LYMPHOCYTE # 2.1 TH/MM3 (1.0-4.8); MEAN CELL VOLUME 81.6 FL (80.0-100.0); MEAN CORPUSCULAR HEMOGLOBIN 26.7 PG (27.0-34.0); MEAN CORPUSCULAR HGB CONC 32.8 % (32.0-36.0); MONO % 7.9 % (0.0-8.0); NEUT % 46.6 % (16.0-70.0); PLATELET COUNT 321 TH/MM3 (150-450); RED BLOOD COUNT 3.12 MIL/MM3 (4.00-5.30); RED CELL DISTRIBUTION WIDTH 17.1 % (11.6-17.2)
[2017-02-10] MEDS: SODIUM CHLOR 0.9% 1000 ML INJ 1,000 ML IV SCH ×2 (06:01→17:27)
[2017-02-10 06:03] LABS: ALT (GPT) 43 U/L (10-53); ANION GAP 9 MEQ/L (5-15); AST (GOT) 24 U/L (15-37); BICARBONATE 24.8 MEQ/L (21.0-32.0); BLOOD UREA NITROGEN 46 MG/DL (7-18); CHLORIDE 105 MEQ/L (98-107); GLOMERULAR FILTRATION RATE 29 ML/MIN (>89); POTASSIUM 4.4 MEQ/L (3.5-5.1); SODIUM (NA) 139 MEQ/L (136-145)
[2017-02-10 06:06] LABS: ALKALINE PHOSPHATASE 116 U/L (45-117); TOTAL BILIRUBIN ADULT 0.3 MG/DL (0.2-1.0)
[2017-02-10] MEDS: oxyCODONE/ACETAMINOPHEN 5 MG/325 MG TAB PO PRN ×2 (06:06→12:10)
[2017-02-10 08:00] VITALS: BP_SYST 110; BP_DIAS 46; BP_DIAS 68; PULSE 71; PULSE 82; RESP 18; TEMP 98; TEMP 98.7; O2SAT 100; O2SAT 93
[2017-02-10] MEDS: FOLIC ACID 1 MG TAB PO SCH (08:25)
[2017-02-10] MEDS: METOPROLOL TARTRATE 25 MG TAB PO SCH ×2 (08:26→22:05)
[2017-02-10] MEDS: oxyCODONE HCL 10 MG CONTROLLED RELEASE TAB PO SCH ×2 (08:26→22:05)
[2017-02-10] MEDS: VITAMIN B COMPLEX/VIT C TAB PO SCH (08:27)
[2017-02-10] MEDS: DOCUSATE SODIUM 50 MG/SENNA 8.6 MG TAB PO SCH ×2 (08:27→21:00)
[2017-02-10] MEDS: SODIUM CHLORIDE 0.9% FLUSH 10 ML FLUSH IV FLUSH SCH ×3 (09:00→22:05)
[2017-02-10] MEDS: COLLAGENASE OINT 30 GM TUBE TOPICAL SCH (09:00)
--- NOTE | 2017-02-10 10:25 | HHI.FF ---
Face to Face Verification Diagnosis: (1) Abscess (2) Postoperative infection (3) Renal insufficiency (4) Hypercalcemia Physical Therapy Order: Evaluate and Treat Occupational Therapy Order: Evaluate and Treat Home Health Nursing Order: Medical education Medication education-adverse effect I have seen patient Yu Reddy on 02/10/17. My clinical findings support the need for the requested home health care services because: Infection w/ risk of complications Injectable med education/admin I certify that my clinical findings support that this patient is homebound because: Post-op weakness Acosta Neil MD Feb 10, 2017 10:25
[2017-02-10] MEDS ORDERED: FOLI1TAB6 PO (10:28)
--- NOTE | 2017-02-10 10:42 | HHI.PR ---
Subjective History of Present Illness Patient same still have sternal wound infection s/p Prevena dressing and wound vaccum no acute issue Infectious disease and wound care input noted on Cubicin per ID recommendation Cardiovascular seen the patient input noted. waiting for Antibiotic arrangement from insurance [employer] shoe caser working on it...d/w case work aide. ok to discharge home today with home health care if all arrangement made. Review of Systems Constitutional Constitutional: Fatigue, Weakness Integumentary Skin: Wounds Skin Remarks mid sternal wound with redness Vitals/Results Vital Signs Vital Signs Date Time Temp Pulse Resp B/P (MAP) Pulse Ox O2 Delivery O2 Flow Rate FiO2 02/10/17 08:00 98.7 82 18 110/46 (67) 100 02/10/17 08:00 Room Air 02/10/17 07:06 18 02/10/17 04:00 Room Air 02/10/17 04:00 98.0 83 19 131/83 (99) 98 02/10/17 00:00 98.3 70 19 127/71 (89) 97 02/10/17 00:00 Room Air 02/09/17 21:59 20 02/09/17 20:35 Room Air 02/09/17 20:00 98.2 89 16 126/83 (97) 97 02/09/17 16:10 98.1 84 17 130/70 (90) 98 02/09/17 16:00 Room Air 02/09/17 12:00 98.3 84 18 129/70 (89) 98 02/09/17 12:00 Room Air CBC/BMP: 02/10/17 0520 02/10/17 0520 Lab Results Laboratory Tests Test 02/10/17 05:20 White Blood Count 6.0 TH/MM3 Red Blood Count 3.12 MIL/MM3 Hemoglobin 8.3 GM/DL Hematocrit 25.5 % Mean Corpuscular Volume 81.6 FL Mean Corpuscular Hemoglobin 26.7 PG Mean Corpuscular Hemoglobin Concent 32.8 % Red Cell Distribution Width 17.1 % Platelet Count 321 TH/MM3 Mean Platelet Volume 5.8 FL Neutrophils (%) (Auto) 46.6 % Lymphocytes (%) (Auto) 35.6 % Monocytes (%) (Auto) 7.9 % Eosinophils (%) (Auto) 7.2 % Basophils (%) (Auto) 2.7 % Neutrophils # (Auto) 2.8 TH/MM3 Lymphocytes # (Auto) 2.1 TH/MM3 Monocytes # (Auto) 0.5 TH/MM3 Eosinophils # (Auto) 0.4 TH/MM3 Basophils # (Auto) 0.2 TH/MM3 CBC Comment DIFF FINAL Differential Comment Blood Urea Nitrogen 46 MG/DL Creatinine 1.94 MG/DL Random Glucose 95 MG/DL Total Protein 7.7 GM/DL Albumin 3.0 GM/DL Calcium Level 10.2 MG/DL Alkaline Phosphatase 116 U/L Aspartate Amino Transf (AST/SGOT) 24 U/L Alanine Aminotransferase (ALT/SGPT) 43 U/L Total Bilirubin 0.3 MG/DL Sodium Level 139 MEQ/L Potassium Level 4.4 MEQ/L Chloride Level 105 MEQ/L Carbon Dioxide Level 24.8 MEQ/L Anion Gap 9 MEQ/L Estimat Glomerular Filtration Rate 29 ML/MIN Physical Exam General General Appearance: Well Developed, Well Nourished, No Acute Distress, Comfortable Eyes Eye Exam: Sclera White, Extraocular Movement Intact Throat Throat Exam: Oral Mucosa [place] & Moist, Oral Pharynx Normal Neck Neck Exam: Neck Supple, Trachea Midline Pulmonary Resp Exam: Clear Bilaterally, Breath Sounds Equal, No Distress Cardiology CV Exam: Regular, Normal Sinus Rhythm, Good Perfusion Chest/Breast Chest/Breast Remarks mid sternal wound with erythema. Gastrointestinal/Abdomen GI Exam: Soft, Non-Tender, Bowel Sounds Present Musculoskeletal MS Exam: Joints Intact Integumentary Skin Exam: Warm, Dry Skin Remarks mid sternal wound with erythema. Extremeties Extremities Exam: No Edema, Pedal Pulses Palpable Neurologic Neuro Exam: Alert, Awake, Oriented, Moving All Extremities, No Focal Deficits Psychiatric Psych Exam: Appropriate Responses VTE Prophylaxis VTE Prophylaxis Meds: Lovenox PUD Prophylasis PUD Prophylaxis: Protonix Assessment/Plan Assessment/Plan ASSESSMENT/PLAN This is a 36-year female who came to the ER diagnosed with: 1. 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 wound culture grows MRSA Infectious disease and wound care input noted on Cubicin .Patient have Prevena dressing wound vacuum on Cardiovascular surgeon seen the patient input noted need 6 week IV Antibiotic per ID Recommendation. discharge plan noted per ID. Further recommendation per consultants. 2. History of IV drug abuse. 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 Advised to discontinue IV drug abuse. The patient verbalized understanding. 3. Renal failure. We will monitor BUN and creatinine. nephrology input noted ..better 4. Anemia. checked iron study, B12, folic acid level...noted 5. DVT prophylaxis. Lovenox 30 mg subcutaneous daily. 6. GI prophylaxis Protonix 40 mg p.o. daily Check CBC with diff CMP in AM. Patient need to sign paper for not use PICC Line for drug abuse or any other non prescribed medicine. and do not crush any medicine prescribed or non prescribed and put in IV Through PICC Line. Patient verbalize understanding and said she will no do that.. ok to discharge home today with home health care if all arrangement made. f/u with pcp/Infectious disease / cardiovascular surgeon 1-2 week. Discussed Condition with: Patient Acosta Neil MD Feb 10, 2017 10:42
[2017-02-10] MEDS: ENOXAPARIN SODIUM 30 MG/0.3 ML SYRINGE SQ SCH (11:53)
[2017-02-10 12:00] VITALS: BP 108/51; PULSE 67; RESP 18; TEMP 98.1; O2SAT 100
[2017-02-10 16:00] VITALS: BP 99/133; PULSE 79; RESP 18; TEMP 97.6; O2SAT 20
[2017-02-10 20:00] VITALS: BP 137/57; PULSE 76; RESP 16; TEMP 97.7; O2SAT 100
[2017-02-11] VITALS: BP 154/74; PULSE 75; RESP 16; TEMP 97.8; O2SAT 97
[2017-02-11] MEDS: oxyCODONE/ACETAMINOPHEN 5 MG/325 MG TAB PO PRN ×2 (02:48→17:34)
[2017-02-11] MEDS: SODIUM CHLOR 0.9% 1000 ML INJ 1,000 ML IV SCH ×3 (02:49→22:26)
[2017-02-11 04:00] VITALS: BP 98/51; PULSE 67; RESP 16; TEMP 98.3; O2SAT 100
[2017-02-11 08:00] VITALS: BP 135/84; PULSE 61; RESP 20; TEMP 98.4; O2SAT 100
[2017-02-11] MEDS: SODIUM CHLORIDE 0.9% FLUSH 10 ML FLUSH IV FLUSH SCH ×3 (09:00→22:26)
[2017-02-11] MEDS: COLLAGENASE OINT 30 GM TUBE TOPICAL SCH (09:00)
--- NOTE | 2017-02-11 09:19 | HHI.PR ---
Subjective History of Present Illness Patient same still have sternal wound infection s/p Prevena dressing and wound vaccum no acute issue Infectious disease and wound care input noted on Cubicin per ID recommendation Cardiovascular seen the patient input noted. waiting for Antibiotic arrangement from insurance [employer] catalytic case operator working on it...d/w case resolution specialist. ok to discharge home today with home health care if all arrangement made. Review of Systems Constitutional Constitutional: Fatigue, Weakness Integumentary Skin: Wounds Skin Remarks mid sternal wound with redness Vitals/Results Vital Signs Vital Signs Date Time Temp Pulse Resp B/P (MAP) Pulse Ox O2 Delivery O2 Flow Rate FiO2 02/11/17 08:00 98.4 61 20 135/84 (101) 100 02/11/17 04:00 Room Air 02/11/17 04:00 98.3 67 16 98/51 (67) 100 02/11/17 00:00 97.8 75 16 154/74 (100) 97 02/11/17 00:00 Room Air 02/10/17 20:00 Room Air 02/10/17 20:00 97.7 76 16 137/57 (83) 100 02/10/17 16:00 Room Air 02/10/17 16:00 97.6 79 18 99/133 (122) 20 02/10/17 12:00 98.1 67 18 108/51 (70) 100 02/10/17 12:00 Room Air CBC/BMP: 02/10/17 0520 02/10/17 0520 Physical Exam General General Appearance: Well Developed, Well Nourished, No Acute Distress, Comfortable Eyes Eye Exam: Sclera White, Extraocular Movement Intact Throat Throat Exam: Oral Mucosa [place] & Moist, Oral Pharynx Normal Neck Neck Exam: Neck Supple, Trachea Midline Pulmonary Resp Exam: Clear Bilaterally, Breath Sounds Equal, No Distress Cardiology CV Exam: Regular, Normal Sinus Rhythm, Good Perfusion Chest/Breast Chest/Breast Remarks mid sternal wound with erythema. Gastrointestinal/Abdomen GI Exam: Soft, Non-Tender, Bowel Sounds Present Musculoskeletal MS Exam: Joints Intact Integumentary Skin Exam: Warm, Dry Skin Remarks mid sternal wound with erythema. Extremeties Extremities Exam: No Edema, Pedal Pulses Palpable Neurologic Neuro Exam: Alert, Awake, Oriented, Moving All Extremities, No Focal Deficits Psychiatric Psych Exam: Appropriate Responses VTE Prophylaxis VTE Prophylaxis Meds: Lovenox PUD Prophylasis PUD Prophylaxis: Protonix Assessment/Plan Assessment/Plan ASSESSMENT/PLAN This is a 36-year female who came to the ER diagnosed with: 1. 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 wound culture grows MRSA Infectious disease and wound care input noted on Cubicin .Patient have Prevena dressing wound vacuum on Cardiovascular surgeon seen the patient input noted need 6 week IV Antibiotic per ID Recommendation. discharge plan noted per ID. Further recommendation per consultants. 2. History of IV drug abuse. 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 Advised to discontinue IV drug abuse. The patient verbalized understanding. 3. Renal failure. We will monitor BUN and creatinine. nephrology input noted ..better 4. Anemia. checked iron study, B12, folic acid level...noted 5. DVT prophylaxis. Lovenox 30 mg subcutaneous daily. 6. GI prophylaxis Protonix 40 mg p.o. daily Check CBC with diff CMP in AM. Patient need to sign paper for not use PICC Line for drug abuse or any other non prescribed medicine. and do not crush any medicine prescribed or non prescribed and put in IV Through PICC Line. Patient verbalize understanding and said she will no do that.. ok to discharge home today with home health care if all arrangement made. f/u with pcp/Infectious disease / cardiovascular surgeon 1-2 week. Acosta Neil MD Feb 11, 2017 09:19
[2017-02-11] MEDS: FOLIC ACID 1 MG TAB PO SCH (10:07)
[2017-02-11] MEDS: DOCUSATE SODIUM 50 MG/SENNA 8.6 MG TAB PO SCH ×2 (10:07→21:00)
[2017-02-11] MEDS: DAPTOmycin INJ 360 MG in SODIUM CHLORIDE 0.9% INJ 100 ML IV SCH (10:07)
[2017-02-11] MEDS: VITAMIN B COMPLEX/VIT C TAB PO SCH (10:07)
[2017-02-11] MEDS: METOPROLOL TARTRATE 25 MG TAB PO SCH ×2 (10:07→22:26)
[2017-02-11] MEDS: oxyCODONE HCL 10 MG CONTROLLED RELEASE TAB PO SCH ×2 (10:08→22:26)
[2017-02-11 12:00] VITALS: BP 143/86; PULSE 81; RESP 20; TEMP 98.5; O2SAT 95
[2017-02-11] MEDS: ENOXAPARIN SODIUM 30 MG/0.3 ML SYRINGE SQ SCH (12:57)
--- NOTE | 2017-02-11 13:50 | HHI.FF ---
Face to Face Verification Diagnosis: (1) Postoperative infection (2) Renal insufficiency Home Health Nursing Order: Medical education Medication education-adverse effect IV medication administration I have seen patient Yu Reddy on 02/11/17. My clinical findings support the need for the requested home health care services because: Infection w/ risk of complications Injectable med education/admin I certify that my clinical findings support that this patient is homebound because: Post-op weakness Acosta Neil MD Feb 11, 2017 13:50
[2017-02-11 16:00] VITALS: BP 117/68; PULSE 78; RESP 18; TEMP 99; O2SAT 100
[2017-02-11 20:00] VITALS: BP 102/51; PULSE 72; RESP 18; TEMP 98.3; O2SAT 100
[2017-02-12] VITALS: BP 104/55; PULSE 74; RESP 20; TEMP 97.8; O2SAT 97
[2017-02-12 04:00] VITALS: BP 134/63; PULSE 68; RESP 20; TEMP 97.8; O2SAT 100
[2017-02-12 07:25] LABS: AUTOMATED NEUTROPHIL # 2.5 TH/MM3 (1.8-7.7); BASOPHIL # 0.2 TH/MM3 (0-0.2); BASOPHIL % 2.8 % (0.0-2.0); EOSINOPHIL # 0.5 TH/MM3 (0-0.4); EOSINOPHIL % 8.3 % (0.0-4.0); HEMATOCRIT 25.8 % (35.0-46.0); HEMO FLAGS DIFF FINAL; LYMPH % 35.6 % (9.0-44.0); MEAN CELL VOLUME 82.9 FL (80.0-100.0); MEAN CORPUSCULAR HEMOGLOBIN 27.3 PG (27.0-34.0); MEAN CORPUSCULAR HGB CONC 32.9 % (32.0-36.0); MONO % 8.6 % (0.0-8.0); NEUT % 44.7 % (16.0-70.0); PLATELET COUNT 276 TH/MM3 (150-450); RED BLOOD COUNT 3.12 MIL/MM3 (4.00-5.30); RED CELL DISTRIBUTION WIDTH 17.4 % (11.6-17.2); WHITE BLOOD COUNT 5.7 TH/MM3 (4.0-11.0)
[2017-02-12 07:40] LABS: ALT (GPT) 44 U/L (10-53); ANION GAP 8 MEQ/L (5-15); AST (GOT) 25 U/L (15-37); BICARBONATE 24.5 MEQ/L (21.0-32.0); BLOOD UREA NITROGEN 35 MG/DL (7-18); CHLORIDE 108 MEQ/L (98-107); GLOMERULAR FILTRATION RATE 36 ML/MIN (>89); POTASSIUM 4.7 MEQ/L (3.5-5.1); SODIUM (NA) 140 MEQ/L (136-145)
[2017-02-12 07:43] LABS: ALKALINE PHOSPHATASE 115 U/L (45-117); TOTAL BILIRUBIN ADULT 0.3 MG/DL (0.2-1.0)
[2017-02-12 08:00] VITALS: BP 105/51; PULSE 73; RESP 18; TEMP 97.8; O2SAT 93
[2017-02-12] MEDS: VITAMIN B COMPLEX/VIT C TAB PO SCH (08:55)
[2017-02-12] MEDS: oxyCODONE HCL 10 MG CONTROLLED RELEASE TAB PO SCH ×2 (08:55→22:49)
[2017-02-12] MEDS: FOLIC ACID 1 MG TAB PO SCH (08:55)
[2017-02-12] MEDS: DOCUSATE SODIUM 50 MG/SENNA 8.6 MG TAB PO SCH ×2 (08:56→21:00)
[2017-02-12] MEDS: SODIUM CHLOR 0.9% 1000 ML INJ 1,000 ML IV SCH ×2 (08:56→15:53)
[2017-02-12] MEDS: SODIUM CHLORIDE 0.9% FLUSH 10 ML FLUSH IV FLUSH SCH ×3 (08:56→22:50)
[2017-02-12] MEDS: METOPROLOL TARTRATE 25 MG TAB PO SCH ×2 (08:56→22:50)
[2017-02-12] MEDS: COLLAGENASE OINT 30 GM TUBE TOPICAL SCH (08:56)
[2017-02-12] MEDS ORDERED: SILVER SULFADIAZINE 1% CR 50 GM JAR TOPICAL SCH (09:45)
[2017-02-12] MEDS: ENOXAPARIN SODIUM 30 MG/0.3 ML SYRINGE SQ SCH (11:53)
[2017-02-12] MEDS: oxyCODONE/ACETAMINOPHEN 5 MG/325 MG TAB PO PRN ×2 (11:54→17:47)
[2017-02-12 12:00] VITALS: BP 101/50; PULSE 75; RESP 18; TEMP 98.2; O2SAT 100
[2017-02-12 16:00] VITALS: BP 110/56; PULSE 94; RESP 18; TEMP 98; O2SAT 100
--- NOTE | 2017-02-12 16:31 | HHI.PR ---
Subjective History of Present Illness Patient same still have sternal wound infection s/p Prevena dressing and wound vaccum no acute issue Infectious disease and wound care input noted on Cubicin per ID recommendation Cardiovascular seen the patient input noted. waiting for Antibiotic arrangement from [employer] case packer and sealer working on it...d/w rehabilitation case coordinator. ok to discharge home today with home health care all arrangement made. Review of Systems Constitutional Constitutional: Fatigue, Weakness Integumentary Skin: Wounds Skin Remarks mid sternal wound with redness Vitals/Results Vital Signs Vital Signs Date Time Temp Pulse Resp B/P (MAP) Pulse Ox O2 Delivery O2 Flow Rate FiO2 02/12/17 12:00 98.2 75 18 101/50 (67) 100 02/12/17 08:49 Room Air 02/12/17 08:00 97.8 73 18 105/51 (69) 93 02/12/17 04:00 97.8 68 20 134/63 (86) 100 02/12/17 00:00 97.8 74 20 104/55 (71) 97 02/11/17 20:00 98.3 72 18 102/51 (68) 100 02/11/17 19:30 Room Air CBC/BMP: 02/12/17 0700 02/12/17 0700 Lab Results Laboratory Tests Test 02/12/17 07:00 White Blood Count 5.7 TH/MM3 Red Blood Count 3.12 MIL/MM3 Hemoglobin 8.5 GM/DL Hematocrit 25.8 % Mean Corpuscular Volume 82.9 FL Mean Corpuscular Hemoglobin 27.3 PG Mean Corpuscular Hemoglobin Concent 32.9 % Red Cell Distribution Width 17.4 % Platelet Count 276 TH/MM3 Mean Platelet Volume 6.0 FL Neutrophils (%) (Auto) 44.7 % Lymphocytes (%) (Auto) 35.6 % Monocytes (%) (Auto) 8.6 % Eosinophils (%) (Auto) 8.3 % Basophils (%) (Auto) 2.8 % Neutrophils # (Auto) 2.5 TH/MM3 Lymphocytes # (Auto) 2.0 TH/MM3 Monocytes # (Auto) 0.5 TH/MM3 Eosinophils # (Auto) 0.5 TH/MM3 Basophils # (Auto) 0.2 TH/MM3 CBC Comment DIFF FINAL Differential Comment Blood Urea Nitrogen 35 MG/DL Creatinine 1.63 MG/DL Random Glucose 92 MG/DL Total Protein 7.8 GM/DL Albumin 3.1 GM/DL Calcium Level 10.2 MG/DL Alkaline Phosphatase 115 U/L Aspartate Amino Transf (AST/SGOT) 25 U/L Alanine Aminotransferase (ALT/SGPT) 44 U/L Total Bilirubin 0.3 MG/DL Sodium Level 140 MEQ/L Potassium Level 4.7 MEQ/L Chloride Level 108 MEQ/L Carbon Dioxide Level 24.5 MEQ/L Anion Gap 8 MEQ/L Estimat Glomerular Filtration Rate 36 ML/MIN Physical Exam General General Appearance: Well Developed, Well Nourished, No Acute Distress, Comfortable Eyes Eye Exam: Sclera White, Extraocular Movement Intact Throat Throat Exam: Oral Mucosa [place] & Moist, Oral Pharynx Normal Neck Neck Exam: Neck Supple, Trachea Midline Pulmonary Resp Exam: Clear Bilaterally, Breath Sounds Equal, No Distress Cardiology CV Exam: Regular, Normal Sinus Rhythm, Good Perfusion Chest/Breast Chest/Breast Remarks mid sternal wound with erythema. Gastrointestinal/Abdomen GI Exam: Soft, Non-Tender, Bowel Sounds Present Musculoskeletal MS Exam: Joints Intact Integumentary Skin Exam: Warm, Dry Skin Remarks mid sternal wound with erythema. Extremeties Extremities Exam: No Edema, Pedal Pulses Palpable Neurologic Neuro Exam: Alert, Awake, Oriented, Moving All Extremities, No Focal Deficits Psychiatric Psych Exam: Appropriate Responses VTE Prophylaxis VTE Prophylaxis Meds: Lovenox PUD Prophylasis PUD Prophylaxis: Protonix Assessment/Plan Assessment/Plan ASSESSMENT/PLAN This is a 36-year female who came to the ER diagnosed with: 1. 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 wound culture grows MRSA Infectious disease and wound care input noted on Cubicin .Patient have Prevena dressing wound vacuum on Cardiovascular surgeon seen the patient input noted need 6 week IV Antibiotic per ID Recommendation. discharge plan noted per ID. Further recommendation per consultants. 2. History of IV drug abuse. 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 Advised to discontinue IV drug abuse. The patient verbalized understanding. 3. Renal failure. We will monitor BUN and creatinine. nephrology input noted ..better 4. Anemia. checked iron study, B12, folic acid level...noted 5. DVT prophylaxis. Lovenox 30 mg subcutaneous daily. 6. GI prophylaxis Protonix 40 mg p.o. daily Check CBC with diff CMP in AM. Patient need to sign paper for not use PICC Line for drug abuse or any other non prescribed medicine. and do not crush any medicine prescribed or non prescribed and put in IV Through PICC Line. Patient verbalize understanding and said she will no do that.. ok to discharge home today with home health care all arrangement made. f/u with pcp/Infectious disease / cardiovascular surgeon 1-2 week. Discussed Condition with: Patient Acosta Neil MD Feb 12, 2017 16:31
[2017-02-12] MEDS ORDERED: COLL30T TOPICAL (16:59)
[2017-02-12 20:00] VITALS: BP 109/55; PULSE 78; RESP 20; TEMP 98.3; O2SAT 99
[2017-02-12] MEDS ORDERED: MUPIROCIN 2% OINT 22 GM TUBE TOPICAL SCH (21:00)
[2017-02-13] VITALS: BP 116/53; PULSE 61; RESP 18; TEMP 97.9; O2SAT 97
[2017-02-13 04:00] VITALS: BP 125/67; PULSE 70; RESP 20; TEMP 98.1; O2SAT 100
[2017-02-13] MEDS: SODIUM CHLOR 0.9% 1000 ML INJ 1,000 ML IV SCH (05:27)
[2017-02-13] MEDS: DAPTOmycin INJ 360 MG in SODIUM CHLORIDE 0.9% INJ 100 ML IV SCH (06:01)
--- NOTE | 2017-02-13 07:56 | HHI.PR ---
Subjective History of Present Illness Patient same still have sternal wound infection s/p Prevena dressing and wound vaccum no acute issue Infectious disease and wound care input noted on Cubicin per ID recommendation Cardiovascular seen the patient input noted. waiting for Antibiotic arrangement from insurance [employer] bilingual patient support caseworker working on it...d/w disability case manager. ok to discharge home today with home health care all arrangement made. Review of Systems Constitutional Constitutional: Fatigue, Weakness Integumentary Skin: Wounds Skin Remarks mid sternal wound with redness Vitals/Results Vital Signs Vital Signs Date Time Temp Pulse Resp B/P (MAP) Pulse Ox O2 Delivery O2 Flow Rate FiO2 02/13/17 04:00 98.1 70 20 125/67 (86) 100 02/13/17 00:00 97.9 61 18 116/53 (74) 97 02/12/17 20:45 Room Air 02/12/17 20:00 98.3 78 20 109/55 (73) 99 02/12/17 16:00 98.0 94 18 110/56 (74) 100 02/12/17 12:00 98.2 75 18 101/50 (67) 100 02/12/17 08:49 Room Air 02/12/17 08:00 97.8 73 18 105/51 (69) 93 CBC/BMP: 02/12/17 0700 02/12/17 0700 Physical Exam General General Appearance: Well Developed, Well Nourished, No Acute Distress, Comfortable Eyes Eye Exam: Sclera White, Extraocular Movement Intact Throat Throat Exam: Oral Mucosa [place] & Moist, Oral Pharynx Normal Neck Neck Exam: Neck Supple, Trachea Midline Pulmonary Resp Exam: Clear Bilaterally, Breath Sounds Equal, No Distress Cardiology CV Exam: Regular, Normal Sinus Rhythm, Good Perfusion Chest/Breast Chest/Breast Remarks mid sternal wound with erythema. Gastrointestinal/Abdomen GI Exam: Soft, Non-Tender, Bowel Sounds Present Musculoskeletal MS Exam: Joints Intact Integumentary Skin Exam: Warm, Dry Skin Remarks mid sternal wound with erythema. Extremeties Extremities Exam: No Edema, Pedal Pulses Palpable Neurologic Neuro Exam: Alert, Awake, Oriented, Moving All Extremities, No Focal Deficits Psychiatric Psych Exam: Appropriate Responses VTE Prophylaxis VTE Prophylaxis Meds: Lovenox PUD Prophylasis PUD Prophylaxis: Protonix Assessment/Plan Assessment/Plan ASSESSMENT/PLAN This is a 36-year female who came to the ER diagnosed with: 1. 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 wound culture grows MRSA Infectious disease and wound care input noted on Cubicin .Patient have Prevena dressing wound vacuum on Cardiovascular surgeon seen the patient input noted need 6 week IV Antibiotic per ID Recommendation. discharge plan noted per ID. Further recommendation per consultants. 2. History of IV drug abuse. 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 Advised to discontinue IV drug abuse. The patient verbalized understanding. 3. Renal failure. We will monitor BUN and creatinine. nephrology input noted ..better 4. Anemia. checked iron study, B12, folic acid level...noted 5. DVT prophylaxis. Lovenox 30 mg subcutaneous daily. 6. GI prophylaxis Protonix 40 mg p.o. daily Check CBC with diff CMP in AM. Patient need to sign paper for not use PICC Line for drug abuse or any other non prescribed medicine. and do not crush any medicine prescribed or non prescribed and put in IV Through PICC Line. Patient verbalize understanding and said she will no do that.. ok to discharge home today with home health care all arrangement made. f/u with pcp/Infectious disease / cardiovascular surgeon 1-2 week. Acosta Neil MD Feb 13, 2017 07:56
--- NOTE | 2017-02-17 09:19 | MD ---
cc: ACOSTA OLIVER MD ADMISSION DATE: 01/30/2017 DISCHARGE DATE: 02/13/2017 DISCHARGE INSTRUCTIONS: Okay to discharge the patient home with home health care condition at the time of discharge satisfactory activity as tolerated. Diet cardiac diet. ALLERGIES PENICILLIN SULFA DRUGS AMOXICILLIN IODINE SEAFOOD. DISCHARGE MEDICATIONS 1. Folic acid 1 mg p.o. daily. 2. Aspirin 325 mg p.o. daily. 3. Vitamin B complex daily. 4. Suboxone 1 gram sublingual t.i.d. 5. Hydroxyzine 50 mg q.i.d. 6. Ibuprofen 800 mg p.o. b.i.d. 7. Ipratropium. 8. Albuterol nebulization q.8 h. 9. Magnesium oxide 400 mg p.o. daily. 10. Metoprolol 25 mg b.i.d. 11. Oxycodone 30 mg twice a day also. 12. Cubicin per IV per ID recommendation. The patient was to follow up with infectious disease for primary care doctor and cardiovascular surgery 1 week and nephrology 1 in week. ADMISSION DIAGNOSIS 1. Sternal wound infection status post tricuspid valve replacement secondary to IV drug abuse and subacute bacterial infective endocarditis. The patient grows MRSA. The patient was given Cubicin the patient had renal failure so that vancomycin cannot be given. The patient <<2:17>> IV antibiotic. The patient got PICC line, special instructions; the patient signed the paperwork that the patient will not use PICC line for non prescribed medication, IV and also will not crash any prescribed pills and mixed with tap water and put in the PICC line. The patient signed that paper, was advised not to do that. Otherwise, she will be responsible for her health, she verbalized understanding and promised not known to that. 2. History of IV drug abuse or secondary to subacute bacterial endocarditis secondary to IV drug abuse leading to tricuspid valve replacement. 3. Renal failure. The patients BUN and creatinine was better. 4. Iron deficiency anemia. The patient was on iron. HOSPITAL COURSE This is 36-year-old female history of IV drug abuse had also tricuspid valve replacement done in [place] and came to [place] and was diagnosed with sternal wound infection. Cardiovascular surgeon has seen the patient, the patient was given the Prevena dressing with a wound vac. The patient condition remained stable during hospital stay. Nephrology seen the patient for renal standpoint had renal failure which is improved. The patient seen by infectious disease doctor needs a 6-week IV antibiotic PICC line, the patient got seen by cardiovascular surgeon no surgical intervention needed. The patient had anemia with a hemoglobin of 8.5, most likely second to renal failure. The patient creatinine was 2.76 at the time of admission, decreased down to 1.63 at the time of discharge. The patient had a low albumin 3.1. The patients urinalysis was done and showed 10 White blood cell, 107 red blood cells, trace of leukocyte esterase. The patients wound culture grew MRSA. Blood culture was negative. Urine culture grew less than 10,010 grams negative rods. Please see the further details in the medical record. Acosta Oliver MD EA/will /4:38 PM /9:07 AM
== END 2017-02-13 08:15 | disposition home or self-care (01) | DRG 863 ==
LOC: NEPC 22:32 → NEDA 01-30 01:29 → NEPFCDU 01-30 02:32 → UNDODISIN 01-30 13:52 → N04A 01-31 16:45
PROVIDERS: ADMIT Family Medicine; ATTEND Family Medicine
DX: T81.4XXA Infection following a procedure, initial encounter (principal); N17.9 Acute kidney failure, unspecified; E86.0 Dehydration; Y83.1 Surgical operation with implant of artificial internal device as the cause of abnormal reaction of the patient, or of later complication, without mention of misadventure at the time of the procedure; Y92.9 Unspecified place or not applicable; K21.9 Gastro-esophageal reflux disease without esophagitis; E83.52 Hypercalcemia; B95.62 Methicillin resistant Staphylococcus aureus infection as the cause of diseases classified elsewhere; J45.909 Unspecified asthma, uncomplicated; F11.10 Opioid abuse, uncomplicated; F17.210 Nicotine dependence, cigarettes, uncomplicated; Z79.82 Long term (current) use of aspirin; Z95.2 Presence of prosthetic heart valve; K58.9 Irritable bowel syndrome, unspecified; D64.9 Anemia, unspecified
CPT/HCPCS: 36569; 71010; 76775; 76937; 80048; 80053; 80202; 81001; 82306; 82607; 82728; 82746; 83540; 83550; 83970; 84466; 85025; 85652; 86140; 87040; 87070; 87077; 87086; 87186; 87205; 96365; J0878; J1642; J1650; J1956; J2405; J3370; J7030; J7050